=== PATIENT | female | born 1955 | race Caucasian/White ===

== ENCOUNTER → 2017-04-24 | Outpatient (CLI) | payer MEDICARE ==
[2017-04-24 10:30] LABS: Bilirubin, Delta 0.3 mg/dL (0.0-0.2); Total Bilirubin 0.5 mg/dL (0.2-1.3)
== END | disposition home or self-care (01) ==
LOC: LABWHC1 09:36
PROVIDERS: ATTEND Internal Medicine Cardiovascular Disease
DX: E78.5 Hyperlipidemia, unspecified (principal); I25.10 Atherosclerotic heart disease of native coronary artery without angina pectoris
CPT/HCPCS: 36415; 80061; 80076; 82550

== ENCOUNTER → 2019-03-14 | Outpatient (CLI) | payer MEDICARE ==
[2019-03-14 18:47] LABS: Chol/HDL Ratio 3.27; LDL Cholesterol,Calculated 75.8 mg/dL (0.0-131.0); VLDL Calculation 26.2 mg/dL (5.00-40.00)
[2019-03-14 18:55] LABS: T4, Free (Free Thyroxine) 1.6 ng/dL (0.80-1.80)
== END | disposition home or self-care (01) ==
LOC: LABWHC1 09:39
PROVIDERS: ATTEND Internal Medicine Cardiovascular Disease
DX: I25.10 Atherosclerotic heart disease of native coronary artery without angina pectoris (principal); E78.5 Hyperlipidemia, unspecified; E03.9 Hypothyroidism, unspecified; R94.6 Abnormal results of thyroid function studies
CPT/HCPCS: 36415; 80061; 84439; 84443; 84450; 84460; 84481

== ENCOUNTER → 2021-02-19 | Outpatient (CLI) | payer MEDICARE ==
[2021-02-20 15:01] LABS: Anion Gap 12.2 mmol/L (4.00-12.00); Carbon Dioxide 23.8 mmol/L (21.6-31.8); Chol/HDL Ratio 3.94; Potassium 5.3 mmol/L (3.5-5.5)
[2021-02-20 15:02] LABS: African American GFR (CKD) 61.9 (60.0-200.0); Albumin 4.3 g/dL (3.80-4.90); Albumin/Globulin Ratio 2.05 (1.60-3.17); Bilirubin, Conjugated 0.2 mg/dL (0.20-0.40); Bilirubin,Unconjugated 0.3 mg/dL; Globulin 2.1 g/dL (1.6-3.3); Non-African American GFR(CKD) 53.4 (60.0-200.0); Total Bilirubin 0.5 mg/dL (0.3-1.2); Total Protein 6.4 g/dL (6.2-8.2)
[2021-02-20 15:09] LABS: T4, Free (Free Thyroxine) 2.2 ng/dL (0.80-1.80)
== END | disposition home or self-care (01) ==
LOC: LABWHC1 10:33
PROVIDERS: ATTEND Internal Medicine
DX: I10 Essential (primary) hypertension (principal); E78.5 Hyperlipidemia, unspecified; E03.9 Hypothyroidism, unspecified
CPT/HCPCS: 36415; 80051; 80061; 80076; 82565; 82947; 84439; 84443; 84481; 84520

== ENCOUNTER → 2021-03-27 | Outpatient (CLI) | payer MEDICARE ==
[2021-03-27 21:58] LABS: Blood Urea Nitrogen 28.6 mg/dL (9.0-27.0); Non-African American GFR(CKD) 57.8 (60.0-200.0); T4, Free (Free Thyroxine) 1.46 ng/dL (0.800-1.800)
== END | disposition home or self-care (01) ==
LOC: LABWHC1 13:11
PROVIDERS: ATTEND Physician Assistant
DX: E03.9 Hypothyroidism, unspecified (principal); N28.9 Disorder of kidney and ureter, unspecified
CPT/HCPCS: 36415; 82565; 84439; 84443; 84481; 84520

== ENCOUNTER → 2022-02-04 | Outpatient (CLI) | payer MEDICARE ==
--- NOTE | 2022-02-04 15:56 | US ---
EXAMINATION TYPE: US kidneys/renal and bladder DATE OF EXAM: 02/04/2022 COMPARISON: None. CLINICAL HISTORY: N18.31 CKD Stage 3A. EXAM MEASUREMENTS: Right Kidney: 9.2 x 4.4 x 3.8 cm Left Kidney: 9.3 x 4.7 x 4.2 cm Difficult and limited study due to patient body habitus Right Kidney: 3.0 x 2.7 x 2.5cm isoechoic area mid pole . No hydronephrosis. No shadowing calculi. Left Kidney: No hydronephrosis or masses seen. No shadowing calculi. Bladder: wnl Bilateral Jets seen: right jet not seen, left jet seen IMPRESSION: Limited evaluation with isoechoic area within the mid pole the right kidney. This may represent drome clara hump versus mass. Consider further evaluation with CT renal mass protocol.
== END | disposition home or self-care (01) ==
LOC: RADUSWWP 14:47
PROVIDERS: ATTEND Internal Medicine
DX: N18.31 Chronic kidney disease, stage 3a (principal)
CPT/HCPCS: 76770

== ENCOUNTER → 2022-10-08 | Outpatient (CLI) | payer MEDICARE ==
--- NOTE | 2022-10-08 12:04 | CT ---
EXAMINATION TYPE: CT abdomen pelvis wo con DATE OF EXAM: 10/08/2022 HISTORY: abnormal labs. Right renal mass per order. Prior abnormal ultrasound. CT DLP: 1539.5 mGycm. Automated Exposure Control for Dose Reduction was Utilized. TECHNIQUE: CT scan of the abdomen and pelvis is performed without oral or IV contrast. COMPARISON: Kidney ultrasound February 04, 2022. MRI lumbar spine November 16, 2012 FINDINGS: Within the limitations of a non-contrast study, the following observations are made. LUNG BASES: Coronary artery calcification and stents in the LAD distribution and RCA distribution ar e thought present. Mild to moderate left greater than right bibasilar linear scarring and/or atelecta sis. Mild cardiomegaly. LIVER/GB: Cholecystectomy clips are seen. PANCREAS: No significant abnormality is seen. SPLEEN: Incidental anterior splenule axial image 55. ADRENALS: There is 1.7 cm low dense right adrenal mass axial image 49 with Hounsfield units averaging near 6 consistent with benign lipid rich adenoma. KIDNEYS: Lobulated contour to both kidneys. No obvious mass identified bilaterally on noncontrast CT. No renal calculi. No hydronephrosis seen bilaterally. BOWEL: Distal left and Sigmoid colonic diverticulosis. No CT evidence for acute diverticulitis. No fay spicious small or large bowel dilatation. GENITAL ORGANS: Anteverted uterus. Normal size ovaries. LYMPH NODES: No greater than 1cm abdominal or pelvic lymph nodes are appreciated. OSSEOUS STRUCTURES: Moderate axial joint space loss in both hips. OTHER: Small fat-containing umbilical hernia sagittal image 74. Displaced clip anterior upper pelvis axial image 118. IMPRESSION: Slightly suboptimal study without IV contrast. No suspicious solid or cystic mass in eith er kidney with particular attention to the mid pole level right kidney at area of concern on recent u ltrasound.
== END | disposition home or self-care (01) ==
LOC: RADCTMAIN 10:55
PROVIDERS: ATTEND Internal Medicine
DX: N28.89 Other specified disorders of kidney and ureter (principal)
CPT/HCPCS: 74176

== ENCOUNTER → 2023-03-24 | Outpatient (CLI) | payer MEDICARE | END | disposition home or self-care (01) | LOC: LABWHC1 11:29 | PROVIDERS: ATTEND Internal Medicine | DX: Z53.9 Procedure and treatment not carried out, unspecified reason (principal) ==

== ENCOUNTER 2023-04-01 05:51 | Observation (INO) | payer MEDICARE ==
[2023-03-27 14:41] VITALS: BMI 48.8
--- NOTE | 2023-03-31 18:21 | P.GSHP ---
History of Present Illness H&P Date: 03/31/23 67 yo female with jeana and a rectocele. SHe comes for a rectocele repair[ Dr Lauren] and a pubovaginal sling [ Dr Tipton ] the risks and complications have been discussed including the mesh controversy and the risks of the surgical procedure. - Constitutional Constitutional: Denies chills, Denies fever - EENT Eyes: denies blurred vision, denies pain Ears, nose, mouth and throat: Denies headache, Denies sore throat - Cardiovascular Cardiovascular: Denies chest pain, Denies shortness of breath - Respiratory Respiratory: Denies cough, Denies 7 - Gastrointestinal Gastrointestinal: Denies abdominal pain, Denies diarrhea, Denies nausea, Denies vomiting - Genitourinary (Female) Genitourinary: Denies dysuria, Denies hematuria - Genitourinary (Male) Genitourinary: Denies dysuria, Denies hematuria - Musculoskeletal Musculoskeletal: Denies myalgias - Integumentary Integumentary: Denies pruritus, Denies rash - Neurological Neurological: Denies numbness, Denies weakness - Psychiatric Psychiatric: Denies anxiety, Denies depression - Endocrine Endocrine: Denies fatigue, Denies weight change Past Medical History Past Medical History: GERD/Reflux, Hyperlipidemia, Hypertension, Myocardial Infarction ([place]), Osteoarthritis (OA), Skin Disorder, Thyroid Disorder Additional Past Medical History / Comment(s): 5 herniated discs in back. Chronic generalized pain. "Knees bone on bone". Psoriasis. Last Myocardial Infarction Date:: 2004 History of Any Multi-Drug Resistant Organisms: None Reported Past Surgical History: Cholecystectomy, Heart Catheterization With Stent, Uterine Ablation Additional Past Surgical History / Comment(s): 3 cardiac stents. Past Anesthesia/Blood Transfusion Reactions: Postoperative Nausea & Vomiting (PONV) Additional Past Anesthesia/Blood Transfusion Reaction / Comment(s): SEVERE PONV WITH ANESTHESIA. Date of Last Stent Placement:: 2004 Past Psychological History: No Psychological Hx Reported Smoking Status: Never smoker Past Alcohol Use History: Rare Past Drug Use History: None Reported - Past Family History Mother Family Medical History: Diabetes Mellitus, Thyroid Disorder Father Family Medical History: Cancer, Myocardial Infarction ([place]) Additional Family Medical History / Comment(s): LUNG CANCER -HEART PROBLEMS WITH TRIPLE BYPASS & [place]. Medications and Allergies Home Medications Medication Instructions Recorded Confirmed Type Omeprazole [PriLOSEC] 40 mg PO AC-SUPPER 10/17/15 03/27/23 History Aspirin 325 mg PO DAILY #30 tab 10/23/15 03/27/23 Rx Acetaminophen [Tylenol] 650 mg PO DIRECTED PRN 03/27/23 03/27/23 History Advil (Unknown Dose) 1 tab PO DIRECTED PRN 03/27/23 03/27/23 History Aleve (Unknown Dose) 1 tab PO DIRECTED PRN 03/27/23 03/27/23 History Diclofenac Sodium [Voltaren] 75 mg PO BID PRN 03/27/23 03/27/23 History Levothyroxine Sodium 150 mcg PO QAM 03/27/23 03/27/23 History Losartan Potassium [Cozaar] 100 mg PO HS 03/27/23 03/27/23 History Rosuvastatin [Crestor] 10 mg PO HS 03/27/23 03/27/23 History amLODIPine BESYLATE [Norvasc] 5 mg PO HS 03/27/23 03/27/23 History Allergies Allergy/AdvReac Type Severity Reaction Status Date / Time Penicillins Allergy Rash/Hives Verified 03/27/23 13:47 Surgical - Exam - General well developed, well nourished, no distress - Eyes normal ocular movement, no icteric - ENT no hearing loss, no congestion - Neck no masses, trachea midline - Respiratory normal respiratory effort, clear to auscultation - Abdomen Abdomen: soft, non tender, no guarding, no rigid, no rebound - Genitourinary hypermobile urethra , rectocele - Integumentary no rash, no abnormal pigmentation - Neurologic no disoriented, no combative - Psychiatric oriented to time, oriented to person, oriented to place, speech is normal, memory intact Assessment and Plan Assessment: Impression: jeana, rectocele Plan: Pubovaginal sling[ lynx graft]. rectocele repair.
--- NOTE | 2023-03-31 19:58 | P.HPOB ---
History of Present Illness H&P Date: 03/31/23 Chief Complaint: Rectocele This is a 67 y.o. female, 3, para 2, who presents for rectocele repair along with pubovaginal sling to be performed by Dr. Tipton for stress urinary incontinence. She complains of back pain, urinary incontinence and constipation. She has to push on vaginal area to have a bowel movement. Symptoms have been worsening over 20 years. She has been evaluated by cardiology and has been cleared for surgery. OB Hx: . History of 2 vaginal deliveries. History of 1 miscarriage. 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 Review of Systems Constitutional: Denies chills, Denies fever Eyes: denies blurred vision, denies pain Ears, nose, mouth and throat: Denies headache, Denies sore throat Cardiovascular: Denies chest pain, Denies shortness of breath Respiratory: Denies cough Gastrointestinal: Reports constipation, Reports heartburn, Denies abdominal pain, Denies diarrhea, Denies nausea, Denies vomiting Genitourinary: Reports prolapse symptoms, Reports stress incontinence Menstruation: Reports postmenopausal Musculoskeletal: Reports low back pain Integumentary: Denies pruritus, Denies rash Neurological: Denies numbness, Denies weakness Psychiatric: Denies anxiety, Denies depression Past Medical History Past Medical History: GERD/Reflux, Hyperlipidemia, Hypertension, Myocardial Infarction ([place]), Osteoarthritis ([place]), Skin Disorder, Thyroid Disorder Additional Past Medical History / Comment(s): 5 herniated discs in back. Chronic generalized pain. "Knees bone on bone". Psoriasis. Last Myocardial Infarction Date:: 2004 History of Any Multi-Drug Resistant Organisms: None Reported Past Surgical History: Cholecystectomy, Heart Catheterization With Stent, Uterine Ablation Additional Past Surgical History / Comment(s): 3 cardiac stents. Past Anesthesia/Blood Transfusion Reactions: Postoperative Nausea & Vomiting (PONV) Additional Past Anesthesia/Blood Transfusion Reaction / Comment(s): SEVERE PONV WITH ANESTHESIA. Date of Last Stent Placement:: 2004 Past Psychological History: No Psychological Hx Reported Smoking Status: Never smoker Past Alcohol Use History: Rare Past Drug Use History: None Reported - Past Family History Mother Family Medical History: Diabetes Mellitus, Thyroid Disorder Father Family Medical History: Cancer, Myocardial Infarction ([place]) Additional Family Medical History / Comment(s): LUNG CANCER -HEART PROBLEMS WITH TRIPLE BYPASS & [place]. Medications and Allergies Home Medications Medication Instructions Recorded Confirmed Type Omeprazole [PriLOSEC] 40 mg PO AC-SUPPER 10/17/15 04/01/23 History Aspirin 325 mg PO DAILY #30 tab 10/23/15 04/01/23 Rx Acetaminophen [Tylenol] 650 mg PO DIRECTED PRN 03/27/23 04/01/23 History Advil (Unknown Dose) 1 tab PO DIRECTED PRN 03/27/23 04/01/23 History Aleve (Unknown Dose) 1 tab PO DIRECTED PRN 03/27/23 04/01/23 History Diclofenac Sodium [Voltaren] 75 mg PO BID PRN 03/27/23 04/01/23 History Levothyroxine Sodium 150 mcg PO QAM 03/27/23 04/01/23 History Losartan Potassium [Cozaar] 100 mg PO HS 03/27/23 04/01/23 History Rosuvastatin [Crestor] 10 mg PO HS 03/27/23 04/01/23 History amLODIPine BESYLATE [Norvasc] 5 mg PO HS 03/27/23 04/01/23 History Allergies Allergy/AdvReac Type Severity Reaction Status Date / Time Penicillins Allergy Rash/Hives Verified 04/01/23 06:20 Exam Osteopathic Statement: *. No significant issues noted on an osteopathic structural exam other than those noted in the History and Physical/Consult. HEENT: within normal limits Heart: regular rate and rhythm Lungs: clear to auscultation bilaterally Abdomen: soft, non-tender Pelvic: uterus small anteverted, non-tender, non prolapsed, grade 2 rectocele, no cystocele Extremities: neg. Shakira's Assessment and Plan (1) Rectocele Current Visit: No Status: Acute Code(s): N81.6 - RECTOCELE SNOMED Code(s): 2855728 (2) ERICA (stress urinary incontinence, female) Current Visit: No Status: Acute Code(s): N39.3 - STRESS INCONTINENCE (FEMALE) (MALE) SNOMED Code(s): 40937307 Plan: Proceed with posterior vaginal colporrhaphy. Dr. Tipton to perform pubvaginal sling. I have discussed the risks, benefits, and alternative therapies for the above- mentioned procedure and for both sedation/anesthesia as well as necessary blood products administration, if indicated, as they pertain to this patient. The patient has indicated her understanding and acceptance of the risks and procedures discussed.
[~2023-04-01 05:51] MED LIST: DEXAMETHASONE SOD PHOSPHATE 4 MG/ML 1 ML VIAL IV ONE; GENTAMICIN 420 MG in SODIUM CHLORIDE 0.9% 100 ML IVPB PRN; LIDOCAINE 1% (10MG/ML) FOR IV START INTRADERMA PRN; ONDANSETRON 4 MG/2 ML VIAL IVP ONE; Pre Op ABX Message 1 EACH MISC MISCELLANE ONE
[2023-04-01] MEDS: LACTATED RINGERS 1,000 ML IV SCH ×4 (06:40→23:14)
[2023-04-01] MEDS ORDERED: ONDANSETRON 4 MG/2 ML VIAL ONE (06:45)
[2023-04-01] MEDS ORDERED: DEXAMETHASONE SOD PHOSPHATE 4 MG/ML 1 ML VIAL IVP ONE (06:59)
[2023-04-01] MEDS ORDERED: ONDANSETRON 4 MG/2 ML VIAL IVP ONE (06:59)
[2023-04-01] MEDS ORDERED: HYDROmorphone 0.5 MG/0.5 ML SYRINGE IVP PRN (07:00)
[2023-04-01] MEDS ORDERED: MIDAZOLAM 2 MG/2 ML VIAL IV PRN (07:00)
[2023-04-01] MEDS ORDERED: MIDAZOLAM 2 MG/2 ML VIAL IVP ONE (07:01)
[2023-04-01] MEDS ORDERED: LIDOCAINE 1% INJ 10MG/ML (20 ML MDV) ONE (07:25)
[2023-04-01] MEDS ORDERED: WATER FOR INJECTION, STERILE 10 ML VIAL IV ONE (07:25)
[2023-04-01] MEDS ORDERED: SUCCINYLCHOLINE CHLORIDE 200 MG/10 ML VIAL IV ONE (07:25)
[2023-04-01] MEDS ORDERED: KETAMINE HCL IN 0.9 % NACL 50 MG/5 ML SYRINGE ONE (07:25)
[2023-04-01] MEDS ORDERED: PROPOFOL 10 MG/ML 20 ML VIAL IV ONE (07:25)
[2023-04-01] MEDS ORDERED: fentaNYL (PF) 50 MCG/ML 2 ML AMP ONE (07:25)
[2023-04-01] MEDS ORDERED: MORPHINE SULFATE (PF) 0.3 MG/0.3 ML SYR ONE (07:25)
[2023-04-01] MEDS ORDERED: MIDAZOLAM 2 MG/2 ML VIAL ONE (07:25)
[2023-04-01] MEDS ORDERED: GLYCOPYRROLATE 0.2 MG/ML 2 ML VIAL ONE (07:25)
[2023-04-01] MEDS ORDERED: PHENYLEPHRINE-0.9% NACL SYG 1,000 MCG/10 ML SYRINGE ONE (07:25)
[2023-04-01] MEDS ORDERED: ePHEDrine 50 MG/ML 1 ML VIAL ONE (07:25)
[2023-04-01] MEDS ORDERED: BACITRACIN OINT 1 EACH PACKET TOPICAL ONE (08:12)
[2023-04-01] MEDS ORDERED: EPINEPHrine 1 MG in SODIUM CHLORIDE 0.9% 150 ML IV ONE (08:14)
[2023-04-01] MEDS ORDERED: GENTAMICIN 40 MG/ML 2 ML VIAL IRRIGATION ONE (08:16)
--- NOTE | 2023-04-01 08:46 | P.OP ---
Date of Procedure: 04/01/23 Preoperative Diagnosis: Stress urinary incontinence, rectocele Postoperative Diagnosis: Same Procedure(s) Performed: Rectocele repair (Dr. Lauren), attempted pubovaginal sling (aborted), cystoscopy Anesthesia: JONOA Surgeon: David Tipton Estimated Blood Loss (ml): 50 Pathology: none sent Disposition: PACU Indications for Procedure: The patient has a rectocele and stress urinary incontinence. She comes for a pubovaginal sling and a rectocele repair Description of Procedure: Patient brought operating suite has been given a general anesthetic. Dr. Lauren does her rectocele repair. I entered the procedure and elevate the anterior vaginal mucosa off the submucosa with 1% lidocaine with epinephrine. A midline suburethral incision is made. I dissect lateral the bladder neck bilaterally. The pelvis was quite tight. A counter incisions in the corners of the pubis. I passed the left introducer into the perivaginal space making sure not to injure the urethra. I then pass a right to do so in the perivaginal space. I do cystoscopy. The urethra has been intubated with the introducer on the right. I attempted twice more to pass introducer begin into the urethra. With attempt I'm outside the urethra but I elected to abort the procedure as I do not want her to get infected graft or urethrovaginal fistula. The catheters placed the patient's awake and returned recovery room good condition. She'll be placed in the hospital postoperatively. The catheter remain in place for several days and then remove the office.
--- NOTE | 2023-04-01 08:50 | P.ANPRN ---
Procedure Note - Anesthesia - Epidural/Spinal Spinal Time Out Performed: Yes Date of Procedure: 04/01/23 Procedure Start Time: 07:00 Procedure Stop Time: 07:07 Location of Patient: PreOp Indication: Acute Post-Operative Pain Sedation Type: Sedate with meaningful contact maintained Preparation: Sterile Dressing Position: Sitting Catheter: None Needle Guage: 25 Injectate: 25 g of preservative free fentanyl mixed with 300 g of PF morphine Narrative: L4-L5 interspinous space with one attempt Blood Aspirated: No Pain Paresthesia on Injection Noted: No Events: Uneventful and Well Tolerated
--- NOTE | 2023-04-01 08:53 | P.OP ---
Date of Procedure: 04/01/23 Preoperative Diagnosis: Rectocele Postoperative Diagnosis: Same Procedure(s) Performed: Posterior vaginal colporrhaphy Anesthesia: [facility] Surgeon: Jasmyne Lauren Program Director #1: David Tipton Estimated Blood Loss (ml): 50 Pathology: other (Vaginal mucosa) Disposition: floor Indications for Procedure: This is a 67 y.o. female, 3, para 2, who presents for rectocele repair along with pubovaginal sling to be performed by Dr. Tipton for stress urinary incontinence. She complains of back pain, urinary incontinence and constipation. She has to push on vaginal area to have a bowel movement. Symptoms have been worsening over 20 years. She has been evaluated by cardiology and has been cleared for surgery. Operative Findings: grade 2-3 rectocele is noted and grade 1 cystocele is noted. Description of Procedure: the patient is taken to the operating room and she is placed in the dorsal lithotomy position. She is prepped and draped in the normal sterile fashion. The 4 and 8:00 positions on the introitus or grasped with 2 Allis clamps. Next the vaginal mucosa was injected with a 1 amp of epinephrine to 150 mL of normal saline underneath the vaginal mucosa upwards towards the posterior cul-de-sac. Next a small triangular piece of tissue is removed between the 2 Allis clamps with the scalpel and then Metzenbaum scissors are used to dissect underneath the vaginal mucosa upwards towards the posterior cul-de-sac. The edges of the vaginal mucosa are held with Allis clamps. The vaginal mucosa was dissected away from the rectocele with sharp dissection. Next the rectocele is freed and the rectocele is reduced with 0 Vicryl suture in interrupted [id number] stitches. The vaginal mucosa is then trimmed and then sutured with 0 Vicryl suture in a running locked fashion up to the introitus and then brought u nderneath the skin in a subcuticular fashion back up to the introitus and tied. Good hemostasis is noted. Dr. Navarro performed his portion of the surgery which will be dictated separately. At the end of this procedure one-inch iodoform gauze was used with bacitracin ointment to pack the vagina. Good hemostasis is noted.
[2023-04-01] MEDS ORDERED: ETODOLAC 400 MG TAB PO PRN (09:58)
[2023-04-01] MEDS ORDERED: SIMETHICONE 80 MG CHEWABLE PO PRN (09:58)
[2023-04-01] MEDS ORDERED: ONDANSETRON 4 MG/2 ML VIAL IVP PRN (09:58)
[2023-04-01] MEDS ORDERED: diphenhydrAMINE 50 MG/ML 1 ML VIAL IVP PRN (09:58)
[2023-04-01] MEDS ORDERED: METOCLOPRAMIDE 5 MG/ML 2 ML VIAL IVP PRN (09:58)
[2023-04-01] MEDS ORDERED: KETOROLAC 15 MG/ML 1 ML VIAL IVP PRN (09:58)
[2023-04-01] MEDS: LEVOTHYROXINE 50 MCG TAB PO SCH (14:23)
[2023-04-01] MEDS: SENNOSIDES-DOCUSATE SODIUM 1 EACH TAB PO SCH ×2 (14:24→19:58)
[2023-04-01] MEDS: ASPIRIN 325 MG TAB PO SCH (14:24)
--- NOTE | 2023-04-01 18:08 | XR ---
EXAMINATION TYPE: XR chest 2V DATE OF EXAM: 04/01/2023 COMPARISON: Chest x-ray December 24, 2015 HISTORY: Shortness of breath TECHNIQUE: Frontal and lateral views of the chest are obtained. FINDINGS: There is mild cardiomegaly with central vascular congestion on current study. Low lung vol umes are present. No pleural effusion or pneumothorax seen bilaterally. The osseous structures are i ntact. IMPRESSION: Mild cardiomegaly with central vascular congestion. Correlate for possible CHF exacerbat ion.
[2023-04-01] MEDS ORDERED: FUROSEMIDE 10 MG/ML 2 ML VIAL IV ONE (19:00)
[2023-04-01] MEDS: PANTOPRAZOLE 40 MG TABLET PO SCH (19:00)
[2023-04-01] MEDS: LOSARTAN 50 MG TAB PO SCH (20:00)
[2023-04-01] MEDS: ATORVASTATIN 20 MG TAB PO SCH (20:00)
[2023-04-01] MEDS: amLODIPine 5 MG TAB PO SCH (20:00)
[2023-04-02] MEDS: ZOLPIDEM 5 MG TAB PO PRN ×2 (02:04→21:17)
[2023-04-02 04:32] LABS: Basophils % (A) 0 %; Eosinophils # (A) 0.1 k/uL (0-0.7); Eosinophils % (A) 0 %; HCT 39.5 % (34.0-46.0); HGB 12.8 gm/dL (11.4-16.0); Lymphocytes # (A) 1.3 k/uL (1.0-4.8); Lymphocytes % (A) 8 %; MCH 31.2 pg (25.0-35.0); MCHC 32.5 g/dL (31.0-37.0); MCV 95.9 fL (80.0-100.0); Mean Platelet Volume 8.3; Monocytes # (A) 1.1 k/uL (0-1.0); Monocytes % (A) 6 %; Neutrophils # (A) 14.2 k/uL (1.3-7.7); Neutrophils % (A) 85 %; Platelet Count 208 k/uL (150-450); RBC 4.12 m/uL (3.80-5.40); RDW 13.3 % (11.5-15.5); WBC 16.7 k/uL (3.8-10.6)
[2023-04-02] MEDS: LEVOTHYROXINE 50 MCG TAB PO SCH (05:31)
--- NOTE | 2023-04-02 06:12 | P.PN ---
Progress Note - Text Progress Note Date: 04/02/23 The patient underwent a posterior repair by Dr Lauren and a failed pubovagianl sling by me yesterday. Due to technical reasons I was unable to achieve the sling and it was aborted. I will leave the catheter in until next week and then remove it. A second approach to her jeana can be attempted but I recommend waiting for at least 6 weeks. This has been discussed with the patient. She can be d/cd home from my standpoint with the catheter and fu in the office next week for catheter removal.
--- NOTE | 2023-04-02 07:04 | P.PN ---
Progress Note - Text Progress Note Date: 04/02/23 Ms. Vargas is a 67 -year-old female had a history of Posterior vaginal colporrhaphy under General anesthesia , and spinal analgesia with Astramorph 300 g, and fentanyl 25 mcg for postop pain. Today patient is comfortable sitting in her bed. Today patient rated her pain level 1-2 out of 10 in s everity. Denied any fever, drowsiness, confusion. Denied any weakness, tingling sensation in her lower extremities. Denied any bowel or bladder problems. Moving all extremities without any difficulty. Able to walk without any difficulties. She still using nasal cannula oxygen 4 L. She had history of vomiting a few times yesterday. Denied any nausea or vomiting today. Her itching gradually subsiding. Vitals: Hemodynamically stable Continue oral pain medication as per primary team.
[2023-04-02] MEDS ORDERED: ACETAMINOPHEN TAB 325 MG TAB PO PRN (07:36)
--- NOTE | 2023-04-02 09:18 | P.DS ---
Providers Date of admission: 04/01/2023 Expected date of discharge: 04/02/23 Attending physician: Jasmyne Lauren Primary care physician: Sim Pyle - Discharge Diagnosis(es) (1) Rectocele Current Visit: No Status: Acute (2) ERICA (stress urinary incontinence, female) Current Visit: No Status: Acute Hospital Course: This is a 67-year-old female who underwent a rectocele repair and failed urethral sling on 04/01/2023. Through the night she did have some issues with desaturation and was started on oxygen and given 1 dose of Lasix. She is feeling better today but does feel like she has to cough when she takes a deep breath in. She has been seen by Dr. Tipton this morning and he has indicated that she may be discharged when she is stable. She has not ambulated yet. Packing was removed this morning. Her catheter is going to stay in for approximately 1 week. Vital signs are stable other than her O2 saturation was lower off of oxygen. She is currently on 3 L of oxygen. Abdomen shows positive bowel sounds 4. Her perineum shows some dried blood on the inner thighs. No pad is on her currently. No active bleeding is noted. Extremities show negative Homans. Impression is status post posterior vaginal colporrhaphy postoperative day #1, failed urethral sling. Plan is to wean off of oxygen today and once she has weaned off of oxygen she may be old to go home. She is advised no heavy lifting or straining. She may take ibuprofen or Tylenol as needed for pain. She is advised to follow up in the office in 1 week for a postoperative check. If she is unable to wean off of oxygen today, I will consult heart etiology or medicine to manage her cardiac and respiratory issues. Procedures: Posterior vaginal colporrhaphy on 04/01/2023, failed urethral sling Patient Condition at Discharge: Fair Plan - Discharge Summary Discharge Rx Participant: No New Discharge Prescriptions: No Action Omeprazole [PriLOSEC] 40 mg PO AC-SUPPER Aspirin 325 mg PO DAILY #30 tab amLODIPine BESYLATE [Norvasc] 5 mg PO HS Rosuvastatin [Crestor] 10 mg PO HS Losartan Potassium [Cozaar] 100 mg PO HS Levothyroxine Sodium 150 mcg PO QAM Diclofenac Sodium [Voltaren] 75 mg PO BID PRN PRN Reason: Pain Acetaminophen [Tylenol] 650 mg PO DIRECTED PRN PRN Reason: Pain Aleve (Unknown Dose) 1 tab PO DIRECTED PRN PRN Reason: Pain Advil (Unknown Dose) 1 tab PO DIRECTED PRN PRN Reason: Pain Discharge Medication List Omeprazole [PriLOSEC] 40 mg PO AC-SUPPER 10/17/15 [History] Aspirin 325 mg PO DAILY #30 tab 10/23/15 [Rx] Acetaminophen [Tylenol] 650 mg PO DIRECTED PRN 03/27/23 [History] Advil (Unknown Dose) 1 tab PO DIRECTED PRN 03/27/23 [History] Aleve (Unknown Dose) 1 tab PO DIRECTED PRN 03/27/23 [History] Diclofenac Sodium [Voltaren] 75 mg PO BID PRN 03/27/23 [History] Levothyroxine Sodium 150 mcg PO QAM 03/27/23 [History] Losartan Potassium [Cozaar] 100 mg PO HS 03/27/23 [History] Rosuvastatin [Crestor] 10 mg PO HS 03/27/23 [History] amLODIPine BESYLATE [Norvasc] 5 mg PO HS 03/27/23 [History] Follow up Appointment(s)/Referral(s): David Tipton MD [STAFF PHYSICIAN] - 1 Week Jasmyne Lauren DO [Doctor of Osteopathic Medicine] - 1 Week Activity/Diet/Wound Care/Special Instructions: Activity as tolerated. Diet as tolerated. May shower, but no tub baths for at least 1 week. Encouraged ambulation. No intercourse. Continue stool softeners until regular bowel movements. Discharge Disposition: HOME SELF-CARE
[2023-04-02] MEDS: SENNOSIDES-DOCUSATE SODIUM 1 EACH TAB PO SCH ×2 (10:07→20:40)
[2023-04-02] MEDS: PANTOPRAZOLE 40 MG TABLET PO SCH ×2 (10:07→18:40)
[2023-04-02] MEDS: ASPIRIN 325 MG TAB PO SCH (10:07)
[2023-04-02] MEDS ORDERED: ALBUTEROL NEBULIZED 2.5 MG/3 ML INHALATION PRN (18:27)
--- NOTE | 2023-04-02 18:36 | XR ---
EXAMINATION TYPE: XR chest 2V DATE OF EXAM: 04/02/2023 6:23 PM CLINICAL INDICATION:Female, 67 years old with history of low oxygen saturation; [facility] COMPARISON: Chest radiographs from 04/01/2023 TECHNIQUE: XR chest 2V Frontal and lateral views of the chest. FINDINGS: Lungs/Pleura: There is flattening of the diaphragm with increased lucency of the lungs. No evidence o f pneumothorax, pleural effusion or focal consolidation. Pulmonary vascularity: Unremarkable. Heart/mediastinum: Cardiomediastinal silhouette is enlarged and stable. Musculoskeletal: No acute osseous pathology. IMPRESSION: Low lung volumes with a generalized hazy appearance which could represent atelectasis versus pulmonar y edema correlate with serum BNP.
[2023-04-02] MEDS: IBUPROFEN 600 MG TAB PO PRN (18:38)
[2023-04-02 18:41] LABS: Basophils % (A) 0 %; Eosinophils # (A) 0.2 k/uL (0-0.7); Eosinophils % (A) 2 %; HCT 40.8 % (34.0-46.0); HGB 13.4 gm/dL (11.4-16.0); Lymphocytes # (A) 1.9 k/uL (1.0-4.8); Lymphocytes % (A) 14 %; MCH 31.7 pg (25.0-35.0); MCHC 32.8 g/dL (31.0-37.0); MCV 96.7 fL (80.0-100.0); Mean Platelet Volume 7.9; Monocytes # (A) 0.8 k/uL (0-1.0); Monocytes % (A) 6 %; Neutrophils % (A) 77 %; Platelet Count 191 k/uL (150-450); RBC 4.22 m/uL (3.80-5.40); RDW 13.2 % (11.5-15.5)
[2023-04-02 18:52] LABS: ALT 20 U/L (4-34); African American GFR (CKD) 41 (>60 ml/min/1.73 sqM); Albumin 3.9 g/dL (3.5-5.0); Albumin/Globulin Ratio 1.4; Anion Gap 12 mmol/L; Blood Urea Nitrogen 45 mg/dL (7-17); Calcium 9.1 mg/dL (8.4-10.2); Carbon Dioxide 23 mmol/L (22-30); Chloride 104 mmol/L (98-107); Globulin 2.8 g/dL; Glucose 73 mg/dL (74-99); Non-African American GFR(CKD) 35 (>60 ml/min/1.73 sqM); Sodium 139 mmol/L (137-145); Total Bilirubin 0.6 mg/dL (0.2-1.3); Total Protein 6.7 g/dL (6.3-8.2)
[2023-04-02 19:06] LABS: AST 31 U/L (14-36); Alkaline Phosphatase 85 U/L (38-126)
[2023-04-02] MEDS: amLODIPine 5 MG TAB PO SCH (20:39)
[2023-04-02] MEDS: LOSARTAN 50 MG TAB PO SCH (20:40)
[2023-04-02] MEDS: ATORVASTATIN 20 MG TAB PO SCH (20:40)
[2023-04-02] MEDS: LACTATED RINGERS 1,000 ML IV SCH (21:18)
[2023-04-03] MEDS: LEVOTHYROXINE 50 MCG TAB PO SCH (06:33)
[2023-04-03] MEDS ORDERED: ASPIRIN-ACET-CAFF 250-250-65MG 1 EACH TAB PO PRN (08:20)
--- NOTE | 2023-04-03 08:28 | P.PN ---
Progress Note - Text Progress Note Date: 04/03/23 Patient was unable to wean off of oxygen yesterday. She is currently off of oxygen and sitting up in a chair and denies any trouble breathing at this time. She does complain of a headache that she usually takes Excedrin for at home. She is anxious to go home. Will change discharge to today 04/03/2023 as long as her pulse ox is okay off of oxygen and she is cleared by Dr. Pyle, her primary care. She denies any heavy bleeding. She is passing flatus but no bowel movement yet. Vital signs are otherwise within normal limits. Of note her BUN and creatinine are elevated on labs last night. I will repeat these this morning for medicine.
[2023-04-03 09:02] LABS: African American GFR (CKD) 57 (>60 ml/min/1.73 sqM); Anion Gap 10 mmol/L; Blood Urea Nitrogen 35 mg/dL (7-17); Calcium 9.2 mg/dL (8.4-10.2); Carbon Dioxide 25 mmol/L (22-30); Chloride 105 mmol/L (98-107); Glucose 130 mg/dL (74-99); Non-African American GFR(CKD) 49 (>60 ml/min/1.73 sqM); Potassium 4.7 mmol/L (3.5-5.1); Sodium 140 mmol/L (137-145)
[2023-04-03] MEDS: ASPIRIN 325 MG TAB PO SCH (09:02)
[2023-04-03] MEDS: SENNOSIDES-DOCUSATE SODIUM 1 EACH TAB PO SCH (09:02)
[2023-04-03] MEDS: IBUPROFEN 600 MG TAB PO PRN (11:39)
[2023-04-03 14:41] VITALS: BP 119/76; PULSE 66; RESP 18; TEMP 98
--- NOTE | 2023-04-04 09:16 | P.CONS ---
History of Present Illness - Reason for Consult Consult date: 04/02/23 Medical management Requesting physician: Jasmyne Lauren - Chief Complaint Shortness of breath - History of Present Illness HISTORY OF PRESENT ILLNESS: This is a 67-year-old female one of my patient with a previous medical history significant for hypertension and hypertensive cardio vascular disease, hyperlipidemia, hypothyroidism, GERD with esophagitis, coronary artery disease status post PCI of the RCA back in 2016 followed by a PCI of the RCA/PDA in 2019, obesity with obstructive sleep apnea and obesity hypoventilation syndrome not using his CPAP machine, history of spondylosis of the lumbar spine as well as osteoarthritis, patient underwent surgical intervention that was done by Dr. Tipton and with rectocele repair and pubovaginal sling, patient was supposed be discharged home today however she was found to have low oxygen saturation so I was asked to see the patient for hypoxemia oxygenation was around 88% on room air, patient did not have any acute respiratory distress at that time, patient was found to have a bit of fluid overload, she was given a dose of Lasix 20 mg IV push postoperatively, I the time I saw the patient she was doing fine, chest x-ray showed evidence of atelectasis, she was started on albuterol 2.5 mg nebulization 4 times every day she was placed on oxygen 2 L nasal cannula patient was advised to stay in the hospital overnight for evaluation, her laboratory evaluation that showed evidence of minimal acute kidn ey injury, she was instructed to use incentive spirometer, and patient can be discharged home hopefully the next 24 hours, her d-dimer is slightly elevated due to her recent surgical intervention, EKG did not show evidence of acute abnormalities, troponin is negative., REVIEW OF SYSTEMS: Constitutional: No documented fever, no chills, no night sweats. No weight change. No weakness, fatigue or lethargy. No daytime sleepiness. HEENT: No headache. No blurred vision or double vision, no loss of vision. No loss of Hearing, no ringing in the ears, no dizziness. No nasal drainage or congestion. No epistaxis. No sore throat. Lungs: No shortness of breath, no cough, no sputum production. No wheezing. Reports dyspnea with activity. Cardiovascular: No chest pain, no lower extremity edema. No palpitations. No paroxysmal nocturnal dyspnea. No orthopnea. No lightheadedness or dizziness. No syncopal episodes. Abdominal: Reports abdominal pain. No nausea, vomiting. No diarrhea. No constipation. No bloody or tarry stools reports loss of appetite. Genitourinary: No dysuria, increased frequency, urgency. No urinary retention. Musculoskeletal: No myalgias. No muscle weakness, no gait dysfunction, no frequent falls. No back pain. No neck pain. Integumentary: No wounds, no lesions. No rash or pruritus. No unusual bruising. No change in hair or nails. Neurologic: No aphasia. No facial droop. No change in mentation. No head injury. No headache. No paralysis. No paresthesia. Psychiatric: No depression. No anxiety. No mood swings. Endocrine: No abnormal blood sugars. No weight change. PAST MEDICAL HISTORY: Hypertension and hypertensive cardiovascular disease. Hyperlipidemia. Hypothyroidism. GERD with esophagitis. Coronary artery disease status post PCI of the RCA 2015 and PDA 2018 Obesity with obstructive sleep apnea and obesity hypoventilation syndrome. spondylosis of the lumbar spine. Osteoarthritis. PAST SURGICAL HISTORY: Cholecystectomy. Colonoscopy 2015. Left heart catheterization with PCI of the RCA in 2015 Left heart catheterization with PCI of the RCA/PDA in 2018 Rectocele repair with pubovaginal sling SOCIAL HISTORY: Patient is a lifelong nonsmoker, she denies any drug use or abuse, she drinks occasionally, she lives with her . FAMILY HISTORY: Father at age of 71 from lung cancer and also had history of CAD, mother d ied at age of 77 from complications of diabetes mellitus type 2. Patient has 3 brothers one with paralysis due to a wheelchair accident and 2 with diabetes mellitus type 2, patient has one son and one daughter no major medical problem is. PHYSICAL EXAMINATION: General: 67-year-old female laying down in bed in no particular distress HEENT: Head is atraumatic, normocephalic, pupils were equal round reactive to light and recommendation, extraocular muscle movement were intact, sclera nonicteric, conjunctivae were pale, mucous membranes of the mouth are somewhat dry. Neck: Supple, no JVP, normal carotid upstroke bilaterally, no lymphadenopathy. Chest: Decreased breath sounds at the bases, few rhonchi, no expiratory wheezes, no chest wall tenderness, no intercostal retractions. Heart: First heart sound is normal, second heart sound is normal there is ANGELINA 2/6 located at the left sternal border Abdomen: Soft, nontender, nondistended, positive bowel sounds. Extremities: There is +2 edema no calf tenderness DP +2 bilaterally. Neurologic examination: Patient is awake alert and oriented X3, cranial nerves II-12 appear grossly intact, muscle power were 5 out of 5 in upper extremities and 5 out of 5 in bilateral lower extremities, deep tendon reflexes normal bilaterally. ASSESSMENT AND PLAN: 1. Acute hypoxemic respiratory insufficiency due to atelectasis and minimal fluid overload. She did receive a dose of Lasix 20 mg IV push 1, patient was instructed to use the incentive spirometer, continue oxygen 2 L dissecans her overnight, chest x-ray was reviewed showed evidence of minimal pulmonary vascular congestion as well as bilateral lower lobe atelectasis, start the pa tient on albuterol 2.5 mg nebulization 4 times every day,laboratory evaluation were ordered including CBC CMP d-dimer and troponin there were all reviewed. 2. Acute kidney injury. Monitor the patient CMP over the next 24 hours. Avoid NSAIDs. 3. Hypertension and hypertensive cardiovascular disease. Continue patient on losartan 100 mg every day as well as amlodipine 5 mg once every day, monitor the patient blood pressure very closely. 4. Mixed hyperlipidemia. Continue patient on atorvastatin 40 mg once every day, monitor lipid panel, keep LDL 55-70 5. Coronary artery disease status post PCI of the RCA/PDA. Continue patient on aspirin 81 mg once every day, atorvastatin 40 mg once every day, follow-up with cardiology. 6. Hypothyroidism. Continue Synthroid 150 g orally once every day. 7. GERD with esophagitis. Continue Protonix 40 mg orally once every day. 8. Obesity with obstructive sleep apnea and obesity hypoventilation syndrome patient will need to have a CPAP as an outpatient. 9. DVT prophylaxis. Continue heparin 5000 units subcutaneously every 8 hours 10. GI prophylaxis. Continue PPI. 11. Thank you for the consult. Past Medical History Past Medical History: GERD/Reflux, Hyperlipidemia, Hypertension, Myocardial Infarction ([place]), Osteoarthritis (OA), Skin Disorder, Thyroid Disorder Additional Past Medical History / Comment(s): 5 herniated discs in back. Chronic generalized pain. "Knees bone on bone". Psoriasis. Last Myocardial Infarction Date:: 2004 History of Any Multi-Drug Resistant Organisms: None Reported Past Surgical History: Cholecystectomy, Heart Catheterization With Stent, Uterine Ablation Additional Past Surgical History / Comment(s): 3 cardiac stents. Past Anesthesia/Blood Transfusion Reactions: Postoperative Nausea & Vomiting (PONV) Additional Past Anesthesia/Blood Transfusion Reaction / Comm: SEVERE PONV WITH A NESTHESIA. Date of Last Stent Placement:: 2004 Past Psychological History: No Psychological Hx Reported Smoking Status: Never smoker Past Alcohol Use History: Rare Past Drug Use History: None Reported - Past Family History Mother Family Medical History: Diabetes Mellitus, Thyroid Disorder Father Family Medical History: Cancer, Myocardial Infarction ([place]) Additional Family Medical History / Comment(s): LUNG CANCER -HEART PROBLEMS WITH TRIPLE BYPASS & [place]. Medications and Allergies Home Medications Medication Instructions Recorded Confirmed Type Omeprazole [PriLOSEC] 40 mg PO AC-SUPPER 10/17/15 04/01/23 History Aspirin 325 mg PO DAILY #30 tab 10/23/15 04/01/23 Rx Acetaminophen [Tylenol] 650 mg PO DIRECTED PRN 03/27/23 04/01/23 History Advil (Unknown Dose) 1 tab PO DIRECTED PRN 03/27/23 04/01/23 History Aleve (Unknown Dose) 1 tab PO DIRECTED PRN 03/27/23 04/01/23 History Diclofenac Sodium [Voltaren] 75 mg PO BID PRN 03/27/23 04/01/23 History Levothyroxine Sodium 150 mcg PO QAM 03/27/23 04/01/23 History Losartan Potassium [Cozaar] 100 mg PO HS 03/27/23 04/01/23 History Rosuvastatin [Crestor] 10 mg PO HS 03/27/23 04/01/23 History amLODIPine BESYLATE [Norvasc] 5 mg PO HS 03/27/23 04/01/23 History Allergies Allergy/AdvReac Type Severity Reaction Status Date / Time Penicillins Allergy Rash/Hives Verified 04/01/23 06:20 Physical Exam Vitals: Vital Signs Temp Pulse Resp BP BP Pulse Ox 04/02/23 17:00 95 04/02/23 15:31 90 L 04/02/23 15:30 98.7 F 64 14 121/69 91 L 04/02/23 13:02 18 87 L 04/02/23 11:28 59 L 18 86 L 04/02/23 09:23 92 L 04/02/23 09:03 97.8 F 56 L 18 107/68 91 L 04/02/23 01:56 98.1 F 61 16 134/83 93 L 04/02/23 01:02 94 L 04/02/23 01:00 90 L 04/02/23 00:00 94 L 04/01/23 23:24 97.6 F 58 L 15 127/84 95 04/01/23 22:39 92 L 04/01/23 20:36 98.4 F 60 19 139/84 92 L Intake and Output 04/02/23 04/02/23 04/02/23 06:59 14:59 22:59 Intake Total 50 240 Output Total 800 0 650 Balance -800 50 -410 Intake: Oral 50 240 Output: Urine 800 0 650 Other: Voiding Method Indwelling Catheter Indwelling Catheter Results CBC & Chem 7: 04/02/23 18:14 04/03/23 08:37 Labs: Abnormal Lab Results - Last 24 Hours (Table) 04/02/23 04/02/23 04/02/23 Range/Units 04:02 18:14 18:14 WBC 16.7 H 13.0 H (3.8-10.6) k/uL Neutrophils # 14.2 H 10.0 H (1.3-7.7) k/uL Monocytes # 1.1 H (0-1.0) k/uL D-Dimer (<0.60) mg/L FEU BUN 45 H (7-17) mg/dL Creatinine 1.54 H (0.52-1.04) mg/dL Glucose 73 L (74-99) mg/dL 04/02/23 Range/Units 18:14 WBC (3.8-10.6) k/uL Neutrophils # (1.3-7.7) k/uL Monocytes # (0-1.0) k/uL D-Dimer 0.87 H (<0.60) mg/L FEU BUN (7-17) mg/dL Creatinine (0.52-1.04) mg/dL Glucose (74-99) mg/dL
== END 2023-04-03 17:02 | disposition home or self-care (01) ==
LOC: OR 05:51 → 4FBP 08:43 → 6NMEDSUR 04-02 01:45 → OR 04-02 16:44
PROVIDERS: ADMIT Obstetrics & Gynecology; ATTEND Obstetrics & Gynecology
DX: N81.6 Rectocele (principal); N39.3 Stress incontinence (female) (male); J95.89 Other postprocedural complications and disorders of respiratory system, not elsewhere classified; J98.11 Atelectasis; N17.9 Acute kidney failure, unspecified; R09.02 Hypoxemia; E66.2 Morbid (severe) obesity with alveolar hypoventilation; Z68.43 Body mass index [BMI] 50.0-59.9, adult; E87.70 Fluid overload, unspecified; I11.9 Hypertensive heart disease without heart failure; E03.9 Hypothyroidism, unspecified; K21.9 Gastro-esophageal reflux disease without esophagitis; K21.00 Gastro-esophageal reflux disease with esophagitis, without bleeding; E78.2 Mixed hyperlipidemia; R51.9 Headache, unspecified; R79.89 Other specified abnormal findings of blood chemistry; M47.816 Spondylosis without myelopathy or radiculopathy, lumbar region; G89.29 Other chronic pain; L40.9 Psoriasis, unspecified; I25.2 Old myocardial infarction; K59.00 Constipation, unspecified; M19.90 Unspecified osteoarthritis, unspecified site; Z79.82 Long term (current) use of aspirin; Z88.0 Allergy status to penicillin; Z90.49 Acquired absence of other specified parts of digestive tract; Z95.5 Presence of coronary angioplasty implant and graft; Z79.899 Other long term (current) drug therapy; Z98.890 Other specified postprocedural states; Z83.3 Family history of diabetes mellitus; Z82.49 Family history of ischemic heart disease and other diseases of the circulatory system; Z83.49 Family history of other endocrine, nutritional and metabolic diseases; Z80.1 Family history of malignant neoplasm of trachea, bronchus and lung
CPT/HCPCS: 94760 ×2; 85379; 80053; 80048; 84484; 85025; 88302; 71046 ×2; 57250; 57288; G0378 ×2; J2250; J0171; J0330; J1200; J1580 ×2; J1100; J1940; J2765; J2405; J2001; J2274; J3010; J1885; J2704; J2371

== ENCOUNTER → 2023-10-06 | Outpatient (CLI) | payer MEDICARE ==
--- NOTE | 2023-10-06 12:30 | XR ---
EXAMINATION TYPE: XR lumbosacral spine min 4V DATE OF EXAM: 10/06/2023 12:25 PM CLINICAL INDICATION:Female, 68 years old with history of S79.911A Rt Hip injury; COMPARISON: None TECHNIQUE: XR lumbosacral spine min 4V - Frontal, lateral , bilateral oblique and coned in L5-S1 late ral views of the spine. FINDINGS: No evidence of any acute osseous pathology. No evidence of loss of vertebral body height i s seen. There is normal alignment of the lumbar vertebral bodies. Mild scattered disc space narrowing . Multilevel marginal osteophyte formation throughout the visualized spine. There is facet joint arth ropathy throughout the spine. Scattered at least mild neural foraminal stenosis. Atherosclerosis of t he arterial vasculature. Right upper quadrant cholecystectomy clips. Severe atherosclerosis of the sp inous processes. IMPRESSION: 1. No acute fracture. 2. Mild to moderate multilevel disc degeneration. 3. Findings suggestive of Baastrup's disease.
--- NOTE | 2023-10-06 12:32 | XR ---
EXAMINATION TYPE: XR Hip Complete RT DATE OF EXAM: 10/06/2023 COMPARISON: NONE HISTORY: Pain TECHNIQUE: 2 views submitted FINDINGS: There is no evidence of erosive change or acute fracture. Mild to moderate concentric narrowing joint . Atrophic changes. Mild osteopenia. Mild SI joint hypertrophic arthropathy. IMPRESSION: 1. Moderate arthropathy, correlate for femoral acetabular impingement.
[2023-10-06 15:25] LABS: Basophils # (A) 0.06 X 10*3/uL (0.00-0.10); Basophils % (A) 0.7 %; Eosinophils # (A) 0.27 X 10*3/uL (0.04-0.35); HCT 46.1 % (37.2-46.3); HGB 14.9 g/dL (12.0-15.0); Lymphocytes # (A) 1.87 X 10*3/uL (0.90-5.00); Lymphocytes % (A) 20.4 %; MCH 31.8 pg (27.0-32.0); MCHC 32.3 g/dL (32.0-37.0); MCV 98.3 FL (80.0-97.0); Mean Platelet Volume 10.3 FL (9.5-12.2); Monocytes # (A) 0.61 X 10*3/uL (0.20-1.00); Monocytes % (A) 6.7 %; NRBC Per 100 WBC 0 X 10*3/uL (0.00-0.01); Neutrophils # (A) 6.33 X 10*3/uL (1.80-7.70); Neutrophils % (A) 69.1 %; Platelet Count 254 X 10*3/uL (140-440); RBC 4.69 X 10*6/uL (4.10-5.20); RDW 12.4 % (11.5-14.5); WBC 9.15 X 10*3/uL (4.50-10.00)
[2023-10-06 15:31] LABS: BUN/Creat Ratio 15.58 Ratio (12.00-20.00); Blood Urea Nitrogen 18.7 mg/dL (9.0-27.0); Calcium 9.6 mg/dL (8.7-10.3); Carbon Dioxide 23.9 mmol/L (21.6-31.8); Chloride 104 mmol/L (96-109); Glucose 127 mg/dL (70-110); Potassium 4.7 mmol/L (3.5-5.5); Sodium 140 mmol/L (135-145)
== END | disposition home or self-care (01) ==
LOC: LABPAT 11:12
PROVIDERS: ATTEND Urology
DX: Z01.812 Encounter for preprocedural laboratory examination (principal); N39.3 Stress incontinence (female) (male); S79.911A Unspecified injury of right hip, initial encounter
CPT/HCPCS: 72110; 73502; 80048; 85025

== ENCOUNTER 2023-10-14 07:23 | Day surgery (SDC) | payer MEDICARE ==
[2023-10-08 12:24] VITALS: BMI 50.1
--- NOTE | 2023-10-13 20:09 | P.GSHP ---
History of Present Illness H&P Date: 10/13/23 68 yo female with jeana who comes for a pubovaginal sling with юлия graft. The patient had a combined rectocele attempted pvs in march of 2023. The pvs was aborted due to passage of the graft thru the bladder neck. She has recouperated from her rectocele repair. Her jeana persists. 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 We discussed repeat attempt at the pvs, alternative surgical treatment , referral to a tertiary center for another evaluation and opinion. SHe will come for a repeat attempt at a pvs. this risks and complications including failure, retention, infection, erosion of the graft, injury to adjacent organs among others have been explained understood and accepted. - Constitutional Constitutional: Denies chills, Denies fever - EENT Eyes: denies blurred vision, denies pain Ears, nose, mouth and throat: Denies headache, Denies sore throat - Cardiovascular Cardiovascular: Denies chest pain, Denies shortness of breath - Respiratory Respiratory: Denies cough, Denies 7 - Gastrointestinal Gastrointestinal: Denies abdominal pain, Denies diarrhea, Denies nausea, Denies vomiting - Genitourinary (Female) Genitourinary: Denies dysuria, Denies hematuria - Genitourinary (Male) Genitourinary: Denies dysuria, Denies hematuria - Musculoskeletal Musculoskeletal: Denies myalgias - Integumentary Integumentary: Denies pruritus, Denies rash - Neurological Neurological: Denies numbness, Denies weakness - Psychiatric Psychiatric: Denies anxiety, Denies depression - Endocrine Endocrine: Denies fatigue, Denies weight change Past Medical History Past Medical History: GERD/Reflux, Hyperlipidemia, Hypertension, Myocardial Infarction ([place]), Osteoarthritis ([place]), Skin Disorder, Thyroid Disorder Additional Past Medical History / Comment(s): PSORIASIS. "I went numb and turned white when I had my heart attack." Last Myocardial Infarction Date:: 2004 History of Any Multi-Drug Resistant Organisms: None Reported Past Surgical History: Cholecystectomy, Heart Catheterization With Stent, Uterine Ablation Additional Past Surgical History / Comment(s): 3 cardiac stents. Rectocele repair. Past Anesthesia/Blood Transfusion Reactions: Postoperative Nausea & Vomiting (PO NV) Additional Past Anesthesia/Blood Transfusion Reaction / Comment(s): SEVERE PONV WITH ANESTHESIA. "I get deathly sick with anesthesia." "It was like the exorcist with nausea and vomitting." Date of Last Stent Placement:: 2004 Smoking Status: Never smoker - Past Family History Mother Family Medical History: Diabetes Mellitus, Thyroid Disorder Father Family Medical History: Cancer, Myocardial Infarction ([place]) Additional Family Medical History / Comment(s): LUNG CANCER -HEART PROBLEMS WITH TRIPLE BYPASS & [place]. Medications and Allergies Home Medications Medication Instructions Recorded Confirmed Type Omeprazole [PriLOSEC] 40 mg PO AC-SUPPER 10/17/15 10/08/23 History Acetaminophen [Tylenol] 650 mg PO DIRECTED PRN 03/27/23 10/08/23 History Advil (Unknown Dose) 1 tab PO DIRECTED PRN 03/27/23 10/08/23 History Aleve (Unknown Dose) 1 tab PO DIRECTED PRN 03/27/23 10/08/23 History Diclofenac Sodium [Voltaren] 75 mg PO BID PRN 03/27/23 10/08/23 History Levothyroxine Sodium 150 mcg PO QAM 03/27/23 10/08/23 History Losartan Potassium [Cozaar] 100 mg PO HS 03/27/23 10/08/23 History Rosuvastatin [Crestor] 10 mg PO HS 03/27/23 10/08/23 History amLODIPine BESYLATE [Norvasc] 5 mg PO HS 03/27/23 10/08/23 History Aspirin 325 mg PO QAM 10/08/23 10/08/23 History Co-Q10 (Dose Unknown) 1 dose PO QAM 10/08/23 History Allergies Allergy/AdvReac Type Severity Reaction Status Date / Time Penicillins Allergy Rash/Hives Verified 10/08/23 11:32 Surgical - Exam - General well developed, well nourished, no distress - Eyes normal ocular movement, no icteric - ENT no hearing loss, no congestion - Neck no masses, trachea midline - Respiratory normal respiratory effort, clear to auscultation - Abdomen Abdomen: soft, non tender, no guarding, no rigid, no rebound - Genitourinary hypermobile urethra with jeana, positive anna test. - Integumentary no rash, no abnormal pigmentation - Neurologic no disoriented, no combative - Psychiatric oriented to time, oriented to person, oriented to place, speech is normal, memory intact Assessment and Plan Assessment: Impression: jeana, multiple medical problems, obesity Plan; Pubovagianl sling with lynx graft and cystoscopy
[~2023-10-14 07:23] MED LIST changes: -DEXAMETHASONE SOD PHOSPHATE 4 MG/ML 1 ML VIAL IV ONE; +GENTAMICIN 130 MG in SODIUM CHLORIDE 0.9% 100 ML IVPB PRN; -GENTAMICIN 420 MG in SODIUM CHLORIDE 0.9% 100 ML IVPB PRN; +HYDROmorphone 0.5 MG/0.5 ML SYRINGE IVP PRN; -LIDOCAINE 1% (10MG/ML) FOR IV START INTRADERMA PRN; -ONDANSETRON 4 MG/2 ML VIAL IVP ONE; -Pre Op ABX Message 1 EACH MISC MISCELLANE ONE
[2023-10-14] MEDS: LACTATED RINGERS 1,000 ML IV SCH (08:00)
[2023-10-14] MEDS: ONDANSETRON 4 MG/2 ML VIAL IVP ONE ×2 (08:06→10:00)
[2023-10-14] MEDS: DEXAMETHASONE SOD PHOSPHATE 4 MG/ML 1 ML VIAL IV ONE (08:06)
[2023-10-14] MEDS ORDERED: PROPOFOL 10 MG/ML 20 ML VIAL IV ONE (08:35)
[2023-10-14] MEDS ORDERED: MIDAZOLAM 2 MG/2 ML VIAL ONE (08:35)
[2023-10-14] MEDS ORDERED: GLYCOPYRROLATE 0.2 MG/ML 2 ML VIAL ONE (08:35)
[2023-10-14] MEDS ORDERED: LIDOCAINE 1% INJ 10MG/ML (20 ML MDV) ONE (08:35)
[2023-10-14] MEDS ORDERED: ePHEDrine 50 MG/ML 1 ML VIAL ONE (08:35)
[2023-10-14] MEDS ORDERED: SUCCINYLCHOLINE CHLORIDE 200 MG/10 ML VIAL IV ONE (08:35)
[2023-10-14] MEDS ORDERED: fentaNYL (PF) 50 MCG/ML 2 ML AMP ONE (08:35)
[2023-10-14] MEDS ORDERED: diphenhydrAMINE 50 MG/ML 1 ML VIAL ONE (08:35)
[2023-10-14] MEDS: VASOPRESSIN 20 UNIT/ML 1 ML VIAL IM ONE (08:58)
[2023-10-14] MEDS: GENTAMICIN 80 MG in SODIUM CHLORIDE 0.9% 500 ML 500 ML IRRIGATION ONE (09:00)
[2023-10-14] MEDS ORDERED: ONDANSETRON 4 MG/2 ML VIAL IVP PRN (09:24)
--- NOTE | 2023-10-14 09:30 | P.OP ---
Date of Procedure: 10/14/23 Preoperative Diagnosis: stress urinary incontinence Postoperative Diagnosis: same Procedure(s) Performed: cystoscopy with a trans-obturator tape (obtryx 2) Anesthesia: [facility] Surgeon: David Tipton Estimated Blood Loss (ml): 25 Pathology: none sent Condition: stable Disposition: PACU Indications for Procedure: patient is 68. She has stress incontinence. She failed a pubovaginal sling. She comes for bladder neck suspension and trans-obturator tape or repeat pubovaginal sling. Description of Procedure: patient brought operating suite. Given general anesthesia. Placed in lithotomy position with a sterile prep and drape. A Lopez catheters introduced sterilely. The labia are sewn laterally with 2-0 silk. A vaginal speculum was introduced. The anterior vaginal mucosa was elevated off the submucosa. I tediously dissected bilaterally the bladder neck penetrate the endopelvic fascia. Based on the appearance of the urethra and the mobilization I will do a trans- obturator tape. 2 inguinal incisions are made at the level clitoris. The int roducers a passed through the inguinal incisions in the obturator foramen around the issue pubic ramus into the vaginal space bilaterally. I then do cystoscopy to make sure there is no bladder injury and there is none. The Lopez catheter introduced. I then attached the grafted introducers and pull them back through the inguinal incisions. The graft lay in the mid urethra nicely. I removed the redundant achieving a. I closed the vaginal mucosa with 2-0 Vicryl. I excised redundant graft at the inguinal incision close it with a 4-0 Monocryl. A vaginal packing is placed. The patient's awake and returned recovery in good condition. Blood loss is 25 mL.
[2023-10-14] MEDS: KETOROLAC 15 MG/ML 1 ML VIAL IVP ONE (10:00)
[2023-10-14] MEDS: HYDROmorphone 0.5 MG/0.5 ML SYRINGE IVP ONE (10:00)
[2023-10-14] MEDS: DEXTROSE 5%-0.45% NACL 1,000 ML IV SCH (11:11)
[2023-10-14] MEDS: PANTOPRAZOLE 40 MG TABLET PO SCH (18:08)
[2023-10-14] MEDS: Pre Op ABX Message 1 EACH MISC MISCELLANE ONE (18:19)
[2023-10-14] MEDS: ATORVASTATIN 20 MG TAB PO SCH (21:01)
[2023-10-14] MEDS: KETOROLAC 15 MG/ML 1 ML VIAL IVP PRN (21:05)
[2023-10-15 00:56] VITALS: TEMP 98.2
[2023-10-15] MEDS: LEVOTHYROXINE 75 MCG TAB PO SCH (05:52)
[2023-10-15] MEDS: LOSARTAN 50 MG TAB PO SCH (06:43)
[2023-10-15] MEDS: amLODIPine 5 MG TAB PO SCH (06:43)
[2023-10-15] MEDS: ACETAMINOPHEN TAB 325 MG TAB PO PRN (07:01)
[2023-10-15 08:19] VITALS: BP 115/75; PULSE 50; RESP 16
--- NOTE | 2023-10-15 10:51 | P.DS ---
Providers Expected date of discharge: 10/15/23 Attending physician: David Tipton Primary care physician: Sim Pyle Hospital Course: On the day of admission, the patient underwent an Obtryx sling procedure. The perioperative course was unremarkable. The patient remained afebrile with stable vital signs. The Lopez catheter was removed on the first postoperative day. The patient was subsequently able to void without difficulty, and emptied her bladder completely. She was comfortable at that time. Procedures: Obtryx sling on 10/14/2023. Patient Condition at Discharge: Good Plan - Discharge Summary Discharge Rx Participant: No New Discharge Prescriptions: New traMADol HCL 50 mg PO Q6H 3 Days #12 tab Cephalexin [Keflex] 500 mg PO Q8HR 3 Days #9 cap No Action Omeprazole [PriLOSEC] 40 mg PO AC-SUPPER amLODIPine BESYLATE [Norvasc] 5 mg PO HS Rosuvastatin [Crestor] 10 mg PO HS Losartan Potassium [Cozaar] 100 mg PO HS Levothyroxine Sodium 150 mcg PO QAM Diclofenac Sodium [Voltaren] 75 mg PO BID PRN PRN Reason: Pain Aspirin 325 mg PO QAM Co-Q10 (Dose Unknown) 1 dose PO QAM Acetaminophen [Tylenol] 650 mg PO DIRECTED PRN PRN Reason: Pain Aleve (Unknown Dose) 1 tab PO DIRECTED PRN PRN Reason: Pain Advil (Unknown Dose) 1 tab PO DIRECTED PRN PRN Reason: Pain Discharge Medication List Omeprazole [PriLOSEC] 40 mg PO AC-SUPPER 10/17/15 [History] Acetaminophen [Tylenol] 650 mg PO DIRECTED PRN 03/27/23 [History] Advil (Unknown Dose) 1 tab PO DIRECTED PRN 03/27/23 [History] Aleve (Unknown Dose) 1 tab PO DIRECTED PRN 03/27/23 [History] Diclofenac Sodium [Voltaren] 75 mg PO BID PRN 03/27/23 [History] Levothyroxine Sodium 150 mcg PO QAM 03/27/23 [History] Losartan Potassium [Cozaar] 100 mg PO HS 03/27/23 [History] Rosuvastatin [Crestor] 10 mg PO HS 03/27/23 [History] amLODIPine BESYLATE [Norvasc] 5 mg PO HS 03/27/23 [History] Aspirin 325 mg PO QAM 10/08/23 [History] Co-Q10 (Dose Unknown) 1 dose PO QAM 10/08/23 [History] Cephalexin [Keflex] 500 mg PO Q8HR 3 Days #9 cap 10/15/23 [Rx] traMADol HCL 50 mg PO Q6H 3 Days #12 tab 10/15/23 [Rx] Follow up Appointment(s)/Referral(s): David Tipton MD [STAFF PHYSICIAN] - 1 Week Patient Instructions/Handouts: *[facility] - Cystoscopy Discharge Instructions, *[facility] - (Anesthesia) Discharge Instructions Outpatient Surgery, Bladder Sling for Women ([facility]) Activity/Diet/Wound Care/Special Instructions: Diet as tolerated. No lifting, straining, or strenuous activity. No sexual intercourse. Discharge Disposition: HOME SELF-CARE
== END 2023-10-15 12:40 | disposition home or self-care (01) ==
LOC: OR 07:23 → 4FBP 09:23 → OR 10-15 12:40
PROVIDERS: ATTEND Urology
DX: N39.3 Stress incontinence (female) (male) (principal); I10 Essential (primary) hypertension; E78.5 Hyperlipidemia, unspecified; K21.9 Gastro-esophageal reflux disease without esophagitis; I25.2 Old myocardial infarction; M19.90 Unspecified osteoarthritis, unspecified site; Z90.49 Acquired absence of other specified parts of digestive tract; Z83.3 Family history of diabetes mellitus; Z83.49 Family history of other endocrine, nutritional and metabolic diseases; Z82.49 Family history of ischemic heart disease and other diseases of the circulatory system; Z79.899 Other long term (current) drug therapy; Z79.82 Long term (current) use of aspirin; Z88.0 Allergy status to penicillin
CPT/HCPCS: 57288; C1771; J1580; J1100; J2405; J1885; J1170

== ENCOUNTER 2023-10-18 20:24 | Inpatient (IN) | payer MEDICARE ==
--- NOTE | 2023-10-18 20:45 | ED ---
Fever HPI - General Source: patient, RN notes reviewed Mode of arrival: ambulatory Limitations: no limitations <Katia Garcia - Last Filed: 10/18/23 20:42> <Mohsen Rojas - Last Filed: 10/19/23 01:04> - General Chief Complaint: Fever Stated Complaint: Post-op comp. Time Seen by Provider: 10/18/23 20:40 - History of Present Illness Initial Comments: Quick noteis a 68-year-old female presents emergency department chief complaint of an abscess of her right glute for the last 3 days. Patient also has been experiencing fevers and. Patient underwent a bladder suspension surgery on Thursday and was discharged home on with Keflex. (Katia Garcia) 68-year-old female presenting with fever, weakness, pain and swelling in the right gluteal region which has been draining. Patient underwent bladder suspension surgery but has not had any complaints or symptoms regarding this. She has had a mild cough as well. (Mohsen Rojas) - Related Data Home Medications Medication Instructions Recorded Confirmed Omeprazole [PriLOSEC] 40 mg PO AC-SUPPER 10/17/15 10/14/23 Acetaminophen [Tylenol] 650 mg PO DIRECTED PRN 03/27/23 10/14/23 Advil (Unknown Dose) 1 tab PO DIRECTED PRN 03/27/23 10/14/23 Aleve (Unknown Dose) 1 tab PO DIRECTED PRN 03/27/23 10/14/23 Diclofenac Sodium [Voltaren] 75 mg PO BID PRN 03/27/23 10/14/23 Levothyroxine Sodium 150 mcg PO QAM 03/27/23 10/14/23 Losartan Potassium [Cozaar] 100 mg PO HS 03/27/23 10/14/23 Rosuvastatin [Crestor] 10 mg PO HS 03/27/23 10/14/23 amLODIPine BESYLATE [Norvasc] 5 mg PO HS 03/27/23 10/14/23 Aspirin 325 mg PO QAM 10/08/23 10/14/23 Co-Q10 (Dose Unknown) 1 dose PO QAM 10/08/23 Previous Rx's Medication Instructions Recorded Cephalexin [Keflex] 500 mg PO Q8HR 3 Days #9 cap 10/15/23 traMADol HCL 50 mg PO Q6H 3 Days #12 tab 10/15/23 Allergies Allergy/AdvReac Type Severity Reaction Status Date / Time Penicillins Allergy Rash/Hives Verified 10/18/23 20:30 Review of Systems ROS Other: All systems not noted in ROS Statement are negative. <Katia Garcia - Last Filed: 10/18/23 20:42> ROS Other: All systems not noted in ROS Statement are negative. <Mohsen Rojas - Last Filed: 10/19/23 01:04> ROS Statement: Those systems with pertinent positive or pertinent negative responses have been documented in the HPI. Past Medical History Past Medical History: GERD/Reflux, Hyperlipidemia, Hypertension, Myocardial Infarction ([place]), Osteoarthritis (OA), Skin Disorder, Thyroid Disorder Additional Past Medical History / Comment(s): LAST FEW WEEKS HEAVINESS IN CHEST AND PAIN LEFT ARM TEETH NUMB AND SOB AT TIMES, PSORIASIS TRACY HANDS AND RT INNER LEG- USES OTC RX, GLASSES TO READ ONLY Last Myocardial Infarction Date:: 2004 History of Any Multi-Drug Resistant Organisms: None Reported Past Surgical History: Cholecystectomy, Heart Catheterization With Stent, Uterine Ablation Additional Past Surgical History / Comment(s): 3 cardiac stents. bladder surgery Past Anesthesia/Blood Transfusion Reactions: Postoperative Nausea & Vomiting (PONV) Additional Past Anesthesia/Blood Transfusion Reaction / Comment(s): SEVERE PONV WITH ANESTHESIA Date of Last Stent Placement:: 2004 Past Psychological History: No Psychological Hx Reported Smoking Status: Never smoker Past Alcohol Use History: Rare Past Drug Use History: None Reported - Past Family History Mother Family Medical History: Diabetes Mellitus, Thyroid Disorder Father Family Medical History: Cancer, Myocardial Infarction ([place]) Additional Family Medical History / Comment(s): LUNG CANCER -HEART PROBLEMS WITH TRIPLE BYPASS & [place]. <Katia Garcia - Last Filed: 10/18/23 20:42> General Exam Limitations: no limitations <Katia Garcia - Last Filed: 10/18/23 20:42> General appearance: alert, in no apparent distress Head exam: Present: atraumatic, normocephalic Eye exam: Present: normal appearance, PERRL ENT exam: Present: normal exam Neck exam: Present: normal inspection. Absent: tenderness Respiratory exam: Present: decreased breath sounds. Absent: wheezes Cardiovascular Exam: Present: regular rate, normal rhythm GI/Abdominal exam: Present: soft. Absent: distended, tenderness Rectal exam: Present: other (Right gluteal abscess with surrounding cellulitis, fluctuant center, this is not adjacent to the rectum) Neurological exam: Present: alert Psychiatric exam: Present: normal affect, normal mood <Mohsen Rojas - Last Filed: 10/19/23 01:04> - General Exam Comments Initial Comments: Visual Physical Exam Vital signs reviewed General: Well-appearing, nontoxic, no acute distress. Head: Normocephalic, atraumatic Eyes: PERRLA, EOMI ENT: Airway patent Chest: Nonlabored breathing Skin: No visual rash, normal skin tone Neuro: Alert and oriented 3 Musculoskeletal: No gross abnormalities (Katia Garcia) Course Vital Signs 10/18/23 10/18/23 20:28 23:45 Temperature 100.3 F H 102.3 F H Pulse Rate 79 Respiratory 18 Rate Blood Pressure 161/93 O2 Sat by Pulse 93 L Oximetry Procedures - Incision & Drainage Consent Obtained: verbal consent Indication: Abscess Site: buttock Anesthetic Used: lidocaine 1% Amount (mLs): 3 I&D Cleaning Method: Chloroprep Sterile Field Used?: Yes Scalpel Used: #11 Ultrasound used: No Needle Aspiration Performed?: No Irrigation Performed?: No I&D Drainage Obtained: Pus Loculation Noted: probing needed to break Packing: Iodoform Culture Obtained?: No Patient Tolerated Procedure: well <Mohsen Rojas Lyn - Last Filed: 10/19/23 01:04> Medical Decision Making <Katia Garcia - Last Filed: 10/18/23 20:42> - Lab Data Result diagrams: 10/18/23 23:10 10/18/23 23:10 <Mohsen Rojas Lyn - Last Filed: 10/19/23 01:04> - Medical Decision Making I completed the quick note portion of this chart signed Katia Garcia PA-C (Katia Garcia) Was pt. sent in by a medical professional or institution (JACKY Pierre, PROVIDER ENROLLMENT SPECIALIST, urgent care, hospital, or jail...) When possible be specific @ -No Did you speak to anyone other than the patient for history (EMS, parent, family, police, friend...)? What history was obtained from this source @ -No Did you review nursing and triage notes (agree or disagree)? Why? @ -I reviewed and agree with nursing and triage notes Were old charts reviewed (outside hosp., previous admission, EMS record, old EKG, old radiological studies, urgent care reports/EKG's, jail records)? Report findings @ -No old charts were reviewed Differential Fever: Pneumonia, viral URI, endocarditis, myocarditis, pericarditis, otitis, sinusitis, peritonsillar Abscess, retropharyngeal Abscess, epiglottitis, per itonitis, appendicitis, Justine cystitis, diverticulitis, hepatitis, colitis, UTI, PID, TOA, pyelonephritis, prostatitis, epididymitis, meningitis, encephalitis, pulmonary embolism, CVA, thyroid storm, pancreatitis, adrenal crisis, cavernous sinus thrombosis, this is not meant to be an all-inclusive list. EKG interpreted by me (3pts min.). @ -As above X-rays interpreted by me (1pt min.). @ -Chest x-ray showing cardiomegaly with mild CHF no focal pneumonia CT interpreted by me (1pt min.). @ -None done U/S interpreted by me (1pt. min.). @ -None done What testing was considered but not performed or refused? (CT, X-rays, U/S, labs)? Why? @ -None What meds were considered but not given or refused? Why? @ -None Did you discuss the management of the patient with other professionals (tucker jackson i.e. , PA, PROVIDER ENROLLMENT SPECIALIST, lab, RT, psych nurse, social work nurse, shoe stamper, teacher, retail loss prevention officer, shelter case manager)? Give summary @ -No Was smoking cessation discussed for >3mins.? @ -No Was critical care preformed (if so, how long)? @ -No Were there social determinants of health that impacted care today? How? (Homelessness, low income, unemployed, alcoholism, drug addiction, transportation, low edu. Level, literacy, decrease access to med. care, retirement, rehab)? @ -No Was there de-escalation of care discussed even if they declined (Discuss DNR or withdrawal of care, Hospice)? DNR status @ -No What co-morbidities impacted this encounter? (DM, HTN, Smoking, COPD, CAD, Cancer, CVA, ARF, Chemo, Hep., AIDS, mental health diagnosis, sleep apnea, morbid obesity)? @ -[Obesity Was patient admitted / discharged? Hospital course, mention meds given and route, prescriptions, significant lab abnormalities, going to OR and other pertinent info. @ -68-year-old presenting with evaluation weakness fever, gluteal abscess. Patient has a large abscess on the right buttock. This is not near the rectum or anus. There is a 6 central fluctuance and significant surrounding cellulitis. I did drain this abscess with significant amount of purulence removed. Patient started on IV antibiotics and admitted to Dr. Pyle who is aware. Patient has a normal lactic acid and is not hypotensive. She started on 75 cc of fluid rather than larger amounts of IV fluid due to chest x-ray finding of mild CHF. Undiagnosed new problem with uncertain prognosis? @ -No Drug Therapy requiring intensive monitoring for toxicity (Heparin, Nitro, Insulin, Cardizem)? @ -No Were any procedures done? @Yes, incision and drainage Diagnosis/symptom? @Gluteal abscess with sepsis Acute, or Chronic, or Acute on Chronic? @Acute Uncomplicated (without systemic symptoms) or Complicated (systemic symptoms)? @ -Default Side effects of treatment? @ -No Exacerbation, Progression, or Severe Exacerbation? @ -No Poses a threat to life or bodily function? How? (Chest pain, [place], [place], pneumonia, PE, COPD, DKA, ARF, appy, cholecystitis, CVA, Diverticulitis, Homicidal, Suicidal, threat to staff... and all critical care pts) @ -[Yes, sepsis (Mohsen Rojas) - Lab Data Lab Results 10/18/23 10/18/23 10/18/23 Range/Units 23:05 23:10 23:10 WBC 16.5 H (3.8-10.6) k/uL RBC 4.32 (3.80-5.40) m/uL Hgb 13.7 (11.4-16.0) gm/dL Hct 42.2 (34.0-46.0) % MCV 97.6 (80.0-100.0) fL MCH 31.7 (25.0-35.0) pg MCHC 32.5 (31.0-37.0) g/dL RDW 12.6 (11.5-15.5) % Plt Count 260 (150-450) k/uL MPV 8.3 Neutrophils % 89 % Lymphocytes % 5 % Monocytes % 5 % Eosinophils % 1 % Basophils % 0 % Neutrophils # 14.6 H (1.3-7.7) k/uL Lymphocytes # 0.7 L (1.0-4.8) k/uL Monocytes # 0.9 (0-1.0) k/uL Eosinophils # 0.1 (0-0.7) k/uL Basophils # 0.0 (0-0.2) k/uL Sodium 133 L (137-145) mmol/L Potassium 4.4 (3.5-5.1) mmol/L Chloride 101 (98-107) mmol/L Carbon Dioxide 23 (22-30) mmol/L Anion Gap 9 mmol/L BUN 22 H (7-17) mg/dL Creatinine 1.05 H (0.52-1.04) mg/dL Est GFR (CKD-EPI)AfAm 64 (>60 ml/min/1.73 sqM) Est GFR (CKD-EPI)NonAf 55 (>60 ml/min/1.73 sqM) Glucose 168 H (74-99) mg/dL Plasma Lactic Acid Jaquan (0.7-2.0) mmol/L Calcium 8.2 L (8.4-10.2) mg/dL Total Bilirubin 0.9 (0.2-1.3) mg/dL AST 36 (14-36) U/L ALT 28 (4-34) U/L Alkaline Phosphatase 227 H (38-126) U/L Total Protein 6.0 L (6.3-8.2) g/dL Albumin 3.0 L (3.5-5.0) g/dL Urine Color Yellow Urine Appearance Clear (Clear) Urine pH 7.0 (5.0-8.0) Ur Specific [place] 1.023 (1.001-1.035) Urine Protein 2+ H (Negative) Urine Glucose (UA) Negative (Negative) Urine Ketones Trace H (Negative) Urine Blood Negative (Negative) Urine Nitrite Negative (Negative) Urine Bilirubin Negative (Negative) Urine Urobilinogen 2.0 (<2.0) mg/dL Ur Leukocyte Esterase Negative (Negative) Urine RBC 1 (0-5) /hpf Urine WBC 1 (0-5) /hpf Ur Squamous Epith Cells 1 (0-4) /hpf Urine Mucus Rare H (None) /hpf Influenza Type A (PCR) (Not Detectd) Influenza Type B (PCR) (Not Detectd) RSV (PCR) (Not Detectd) SARS-CoV-2 (PCR) (Not Detectd) 10/18/23 10/18/23 Range/Units 23:10 23:10 WBC (3.8-10.6) k/uL RBC (3.80-5.40) m/uL Hgb (11.4-16.0) gm/dL Hct (34.0-46.0) % MCV (80.0-100.0) fL MCH (25.0-35.0) pg MCHC (31.0-37.0) g/dL RDW (11.5-15.5) % Plt Count (150-450) k/uL MPV Neutrophils % % Lymphocytes % % Monocytes % % Eosinophils % % Basophils % % Neutrophils # (1.3-7.7) k/uL Lymphocytes # (1.0-4.8) k/uL Monocytes # (0-1.0) k/uL Eosinophils # (0-0.7) k/uL Basophils # (0-0.2) k/uL Sodium (137-145) mmol/L Potassium (3.5-5.1) mmol/L Chloride (98-107) mmol/L Carbon Dioxide (22-30) mmol/L Anion Gap mmol/L BUN (7-17) mg/dL Creatinine (0.52-1.04) mg/dL Est GFR (CKD-EPI)AfAm (>60 ml/min/1.73 sqM) Est GFR (CKD-EPI)NonAf (>60 ml/min/1.73 sqM) Glucose (74-99) mg/dL Plasma Lactic Acid Jaquan 1.6 (0.7-2.0) mmol/L Calcium (8.4-10.2) mg/dL Total Bilirubin (0.2-1.3) mg/dL AST (14-36) U/L ALT (4-34) U/L Alkaline Phosphatase (38-126) U/L Total Protein (6.3-8.2) g/dL Albumin (3.5-5.0) g/dL Urine Color Urine Appearance (Clear) Urine pH (5.0-8.0) Ur Specific [place] (1.001-1.035) Urine Protein (Negative) Urine Glucose (UA) (Negative) Urine Ketones (Negative) Urine Blood (Negative) Urine Nitrite (Negative) Urine Bilirubin (Negative) Urine Urobilinogen (<2.0) mg/dL Ur Leukocyte Esterase (Negative) Urine RBC (0-5) /hpf Urine WBC (0-5) /hpf Ur Squamous Epith Cells (0-4) /hpf Urine Mucus (None) /hpf Influenza Type A (PCR) Not Detected (Not Detectd) Influenza Type B (PCR) Not Detected (Not Detectd) RSV (PCR) Not Detected (Not Detectd) SARS-CoV-2 (PCR) Not Detected (Not Detectd) Disposition <Katia Garcia - Last Filed: 10/18/23 20:42> Is patient prescribed a controlled substance at d/c from ED?: No Time of Disposition: 01:04 <Mohsen Rojas - Last Filed: 10/19/23 01:04> Clinical Impression: Cellulitis, Abscess, gluteal, right Disposition: ADMITTED IP TO THIS HOSP Condition: Stable Referrals: Sim Pyle MD [Primary Care Provider] - 1-2 days
[2023-10-18] MEDS: ACETAMINOPHEN TAB 500 MG TAB PO STA (23:19)
[2023-10-18] MEDS: LIDOCAINE 1% INJ 10MG/ML (20 ML MDV) SQ ONE (23:21)
[2023-10-18 23:32] LABS: Basophils % (A) 0 %; Eosinophils # (A) 0.1 k/uL (0-0.7); Eosinophils % (A) 1 %; HCT 42.2 % (34.0-46.0); HGB 13.7 gm/dL (11.4-16.0); Lymphocytes # (A) 0.7 k/uL (1.0-4.8); Lymphocytes % (A) 5 %; MCH 31.7 pg (25.0-35.0); MCHC 32.5 g/dL (31.0-37.0); MCV 97.6 fL (80.0-100.0); Mean Platelet Volume 8.3; Monocytes # (A) 0.9 k/uL (0-1.0); Monocytes % (A) 5 %; Neutrophils # (A) 14.6 k/uL (1.3-7.7); Neutrophils % (A) 89 %; Platelet Count 260 k/uL (150-450); RBC 4.32 m/uL (3.80-5.40); RDW 12.6 % (11.5-15.5); WBC 16.5 k/uL (3.8-10.6)
[2023-10-18] MEDS ORDERED: VANCOMYCIN IV PER PHARMACY 1 EACH MISC MISCELLANE PRN (23:46)
[2023-10-18 23:47] LABS: Appearance,Urine Clear (Clear); Bilirubin,Urine Negative (Negative); Blood,Urine Negative (Negative); Color,Urine Yellow; Glucose,Urine (UA) Negative (Negative); Ketones,Urine Trace (Negative); Leukocyte Esterase,Urine Negative (Negative); Mucus,Urine Rare /hpf; Nitrite,Urine Negative (Negative); Protein,Urine 2+ (Negative); RBC,Urine 1 /hpf (0-5); Specific Gravity,Urine 1.023 (1.001-1.035); Squamous Epithelial Cell,Urine 1 /hpf (0-4); WBC,Urine 1 /hpf (0-5)
[2023-10-19 00:08] LABS: ALT 28 U/L (4-34); African American GFR (CKD) 64 (>60 ml/min/1.73 sqM); Anion Gap 9 mmol/L; Blood Urea Nitrogen 22 mg/dL (7-17); Calcium 8.2 mg/dL (8.4-10.2); Carbon Dioxide 23 mmol/L (22-30); Chloride 101 mmol/L (98-107); Glucose 168 mg/dL (74-99); Non-African American GFR(CKD) 55 (>60 ml/min/1.73 sqM); Sodium 133 mmol/L (137-145); Total Bilirubin 0.9 mg/dL (0.2-1.3)
[2023-10-19 00:09] LABS: AST 36 U/L (14-36); Alkaline Phosphatase 227 U/L (38-126); Potassium 4.4 mmol/L (3.5-5.1)
[2023-10-19] MEDS: SODIUM CHLORIDE 0.9% 1,000 ML IV SCH (00:48)
--- NOTE | 2023-10-19 00:55 | XR ---
EXAM: XR Chest, 1 View CLINICAL HISTORY: ITS.REASON XR Reason: cough/fever TECHNIQUE: Frontal view of the chest. COMPARISON: 04/02/2023. FINDINGS: Lungs: Mild prominence of central pulmonary vascular. No consolidative changes or pleural effusions. Pleural space: See above. Heart: There is cardiomegaly. Mediastinum: Unremarkable. Normal mediastinal contour. Bones/joints: Osseous structures and soft tissues are unremarkable. No acute fracture. IMPRESSION: 1. Cardiomegaly. 2. Consider incipient congestive heart failure.
[2023-10-19] MEDS: VANCOMYCIN 2,000 MG in SODIUM CHLORIDE 0.9% 500 ML 500 ML IVPB ONE (01:37)
[2023-10-19] MEDS ORDERED: NALOXONE 0.4 MG/ML 1 ML VIAL IV PRN (04:12)
[2023-10-19] MEDS ORDERED: ACETAMINOPHEN TAB 325 MG TAB PO PRN (04:12)
[2023-10-19] MEDS ORDERED: ETODOLAC 400 MG TAB PO PRN (08:56)
[2023-10-19] MEDS ORDERED: CO Q10 PO SCH (09:00)
[2023-10-19] MEDS: LEVOTHYROXINE 75 MCG TAB PO SCH (09:42)
[2023-10-19] MEDS: ASPIRIN 325 MG TAB PO SCH (09:42)
[2023-10-19] MEDS: ENOXAPARIN 40 MG/0.4 ML SYRINGE SQ SCH (09:42)
[2023-10-19] MEDS: traMADol 50 MG TAB PO SCH (09:43)
[2023-10-19] MEDS ORDERED: CEFEPIME 2 GM in SODIUM CHLORIDE 0.9% 100 ML IVPB SCH (17:45)
--- NOTE | 2023-10-19 17:46 | P.HPIM ---
History of Present Illness H&P Date: 10/19/23 Chief Complaint: Right gluteal abscess. HISTORY OF PRESENT ILLNESS: This is a 68-year-old female one of my patient with a previous medical history significant for hypertension and hypertensive cardio vascular disease, hyperlipidemia, hypothyroidism, GERD with esophagitis, coronary artery disease status post PCI of the RCA back in 2016 followed by a PCI of the RCA/PDA in 2019, obesity with obstructive sleep apnea and obesity hypoventilation syndrome not using his CPAP machine, history of spondylosis of the lumbar spine as well as osteoarthritis, patient underwent surgical intervention that was done by Dr. Tipton and with rectocele repair and pubovaginal sling, that was done in March 2023, she underwent a recent surgical intervention by Dr. Castro on 10/14/2023, she has done well, patient presented to the emergency department at [facility] yesterday with increased fever and chills, associated with increased swelling in the right gluteal area, she was diagnosed of having right gluteal abscess, she underwent incision and drainage in the ER, she had wound culture, she was started on IV antibiotic in the form of vancomycin with pharmacy to dose its peak and trough she did receive 1 dose of ceftriaxone we will switch her to cefepime 2 g IV piggyback every 8 hours along with the vancomycin, will obtain general surgery consultation for wider debridement of the right gluteal abscess, infectious disease consultation will be obtained, blood cultures and wound cultures including aerobic and anaerobic culture will be done as well. Patient was seen in the emergency department, her daughter was at the bedside, she is updated about the current condition. REVIEW OF SYSTEMS: Constitutional: positive for documented fever, chills, positive for night sweats. No weight change. positive for weakness, fatigue or lethargy. No daytime sleepiness. HEENT: No headache. No blurred vision or double vision, no loss of vision. No loss of Hearing, no ringing in the ears, no dizziness. No nasal drainage or congestion. No epistaxis. No sore throat. Lungs: positive for shortness of breath, no cough, no sputum production. No wheezing. Reports dyspnea with activity. Cardiovascular: No chest pain, no lower extremity edema. No palpitations. No paroxysmal nocturnal dyspnea. No orthopnea. No lightheadedness or dizziness. No syncopal episodes. Abdominal: Reports no abdominal pain. No nausea, vomiting. No diarrhea. No constipation. No bloody or tarry stools reports loss of appetite. Genitourinary: No dysuria, increased frequency, urgency. No urinary retention. Musculoskeletal: No myalgias. positive for muscle weakness, no gait dysfunction, no frequent falls. No back pain. No neck pain. Integumentary: wound on her right gluteal area , no lesions. No rash or pruritus. No unusual bruising. No change in hair or nails. Neurologic: No aphasia. No facial droop. No change in mentation. No head injury. No headache. No paralysis. No paresthesia. Psychiatric: No depression. No anxiety. No mood swings. Endocrine: No abnormal blood sugars. positive for weight change. PAST MEDICAL HISTORY: Hypertension and hypertensive cardiovascular disease. Hyperlipidemia. Hypothyroidism. GERD with esophagitis. Coronary artery disease status post PCI of the RCA 2015 and PDA 2018 Obesity with obstructive sleep apnea and obesity hypoventilation syndrome. spondylosis of the lumbar spine. Osteoarthritis. PAST SURGICAL HISTORY: Cholecystectomy. Colonoscopy 2015. Left heart catheterization with PCI of the RCA in 2015 Left heart catheterization with PCI of the RCA/PDA in 2018 Rectocele repair with pubovaginal sling SOCIAL HISTORY: Patient is a lifelong nonsmoker, she denies any drug use or abuse, she drinks occasionally, she lives with her . FAMILY HISTORY: Father at age of 71 from lung cancer and also had history of CAD, mother at age of 77 from complications of diabetes mellitus type 2. Patient has 3 brothers one with paralysis due to a wheelchair accident and 2 with diabetes mellitus type 2, patient has one son and one daughter no major medical problem is. PHYSICAL EXAMINATION: General: 68-year-old female laying down in bed in no acute distress. HEENT: Head is atraumatic, normocephalic, pupils were equal round reactive to light and recommendation, extraocular muscle movement were intact, sclera nonicteric, conjunctivae were pale, mucous membranes of the mouth are somewhat dry. Neck: Supple, no JVP, normal carotid upstroke bilaterally, no lymphadenopathy. Chest: Decreased breath sounds at the bases, few rhonchi, no expiratory wheezes, no chest wall tenderness, no intercostal retractions. Heart: First heart sound is normal, second heart sound is normal there is ANGELINA 2/6 located at the left sternal border Abdomen: Soft, nontender, nondistended, positive bowel sounds. Extremities: There is +2 edema no calf tenderness DP +2 bilaterally. Neurologic examination: Patient is awake alert and oriented X3, cranial nerves II-12 appear grossly intact, muscle power were 5 out of 5 in upper extremities and 5 out of 5 in bilateral lower extremities, deep tendon reflexes normal bilaterally. Skin examination: There is an induration to the right gluteal area, status post I&D by the emergency room physician, there is a drain in place. With purulent material coming out. ASSESSMENT AND PLAN: 1. Right gluteal abscess. Status post local incision and drainage that was done in the emergency department, with a drain placed and, wound cultures will be obtained, blood cultures will be obtained, continue vancomycin, add cefepime, discontinue Rocephin, infectious disease consultation, general surgery consultation for wider excision, monitor the patient symptoms very closely, continue current pain management, repeat the patient CBC and CMP tomorrow morning. Hep-Lock IV. 2. Mild cardiomegaly with pulmonary vascular congestion discontinue IV fluid resuscitation, started the patient on IV Lasix 40 mg IV push every 24 hours. 3. Hypertension and hypertensive cardiovascular disease. Continue patient on losartan 100 mg every day as well as amlodipine 5 mg once every day, monitor the patient blood pressure very closely. 4. Mixed hyperlipidemia. Continue patient on atorvastatin 40 mg once every day, monitor lipid panel, keep LDL 55-70 5. Coronary artery disease status post PCI of the RCA/PDA. Continue patient on aspirin 81 mg once every day, atorvastatin 40 mg once every day, follow-up with cardiology. 6. Hypothyroidism. Continue Synthroid 150 g orally once every day. 7. GERD with esophagitis. Continue Protonix 40 mg orally once every day. 8. Obesity with obstructive sleep apnea and obesity hypoventilation syndrome patient will need to have a CPAP as an outpatient. 9. DVT prophylaxis. Continue Lovenox 40 mg subcutaneous every 24 hours. 10. GI prophylaxis. Continue Protonix 40 mg orally once every day. 11. Admit to inpatient. Estimated length of stay 2 midnights. 12. Patient is full code. Past Medical History Past Medical History: GERD/Reflux, Hyperlipidemia, Hypertension, Myocardial Infarction ([place]), Osteoarthritis (OA), Skin Disorder, Thyroid Disorder Additional Past Medical History / Comment(s): LAST FEW WEEKS HEAVINESS IN CHEST AND PAIN LEFT ARM TEETH NUMB AND SOB AT TIMES, PSORIASIS TRACY HANDS AND RT INNER LEG- USES OTC RX, GLASSES TO READ ONLY Last Myocardial Infarction Date:: 2004 History of Any Multi-Drug Resistant Organisms: None Reported Past Surgical History: Cholecystectomy, Heart Catheterization With Stent, Uterine Ablation Additional Past Surgical History / Comment(s): 3 cardiac stents. bladder surgery Past Anesthesia/Blood Transfusion Reactions: Postoperative Nausea & Vomiting (PONV) Additional Past Anesthesia/Blood Transfusion Reaction / Comment(s): SEVERE PONV WITH ANESTHESIA Date of Last Stent Placement:: 2004 Past Psychological History: No Psychological Hx Reported Smoking Status: Never smoker Past Alcohol Use History: Rare Past Drug Use History: None Reported - Past Family History Mother Family Medical History: Diabetes Mellitus, Thyroid Disorder Father Family Medical History: Cancer, Myocardial Infarction ([place]) Additional Family Medical History / Comment(s): LUNG CANCER -HEART PROBLEMS WITH TRIPLE BYPASS & [place]. Medications and Allergies Home Medications Medication Instructions Recorded Confirmed Type Omeprazole [PriLOSEC] 40 mg PO AC-SUPPER 10/17/15 10/19/23 History Acetaminophen [Tylenol] 650 mg PO Q6H PRN 03/27/23 10/19/23 History Diclofenac Sodium [Voltaren] 75 mg PO BID PRN 03/27/23 10/19/23 History Levothyroxine Sodium 150 mcg PO QAM 03/27/23 10/19/23 History Losartan Potassium [Cozaar] 100 mg PO HS 03/27/23 10/19/23 History Rosuvastatin [Crestor] 10 mg PO HS 03/27/23 10/19/23 History amLODIPine BESYLATE [Norvasc] 5 mg PO HS 03/27/23 10/19/23 History Aspirin 325 mg PO QAM 10/08/23 10/19/23 History Co-Q10 (Dose Unknown) 1 dose PO QAM 10/08/23 10/19/23 History Cephalexin [Keflex] 500 mg PO Q8HR 3 Days #9 cap 10/15/23 10/19/23 Rx traMADol HCL 50 mg PO Q6H 3 Days #12 tab 10/15/23 10/19/23 Rx Ibuprofen [Advil] 200 mg PO Q6HR PRN 10/19/23 10/19/23 History Naproxen Sodium [Aleve] 220 mg PO BID PRN 10/19/23 10/19/23 History Allergies Allergy/AdvReac Type Severity Reaction Status Date / Time Penicillins Allergy Rash/Hives Verified 10/19/23 06:50 Physical Exam Vitals: Vital Signs Temp Pulse Resp BP Pulse Ox 10/19/23 09:00 98 F 71 20 143/72 92 L 10/19/23 05:00 65 18 98/56 92 L 10/19/23 01:00 98.8 F 71 18 112/72 94 L 10/18/23 23:45 102.3 F H 10/18/23 20:28 100.3 F H 79 18 161/93 93 L Results CBC & Chem 7: 10/18/23 23:10 10/18/23 23:10 Labs: Abnormal Lab Results - Last 24 Hours (Table) 10/18/23 10/18/23 10/18/23 Range/Units 23:05 23:10 23:10 WBC 16.5 H (3.8-10.6) k/uL Neutrophils # 14.6 H (1.3-7.7) k/uL Lymphocytes # 0.7 L (1.0-4.8) k/uL Sodium 133 L (137-145) mmol/L BUN 22 H (7-17) mg/dL Creatinine 1.05 H (0.52-1.04) mg/dL Glucose 168 H (74-99) mg/dL Calcium 8.2 L (8.4-10.2) mg/dL Alkaline Phosphatase 227 H (38-126) U/L Total Protein 6.0 L (6.3-8.2) g/dL Albumin 3.0 L (3.5-5.0) g/dL Urine Protein 2+ H (Negative) Urine Ketones Trace H (Negative) Urine Mucus Rare H (None) /hpf
[2023-10-19] MEDS ORDERED: VANCOMYCIN 2,000 MG in SODIUM CHLORIDE 0.9% 500 ML 500 ML IVPB SCH (20:00)
[2023-10-19] MEDS: PANTOPRAZOLE 40 MG TABLET PO SCH (20:45)
[2023-10-19] MEDS: FUROSEMIDE 10 MG/ML 4 ML VIAL IV SCH (20:45)
[2023-10-19] MEDS: amLODIPine 5 MG TAB PO SCH (20:45)
[2023-10-19] MEDS: ATORVASTATIN 20 MG TAB PO SCH (20:45)
[2023-10-19] MEDS: LOSARTAN 50 MG TAB PO SCH (20:46)
[2023-10-19] MEDS: VANCOMYCIN 2,250 MG in SODIUM CHLORIDE 0.9% 500 ML 500 ML IVPB SCH (21:56)
[2023-10-19] MEDS: ACETAMINOPHEN TAB 325 MG TAB PO PRN (22:04)
[2023-10-19] MEDS: CEFEPIME 2 GM in SODIUM CHLORIDE 0.9% 100 ML IVPB SCH (23:05)
[2023-10-20] MEDS ORDERED: VANCOMYCIN 2,000 MG in SODIUM CHLORIDE 0.9% 500 ML 500 ML IVPB SCH (01:00)
[2023-10-20 08:49] LABS: ALT 44 U/L (8-44); AST 67 U/L (13-35); Albumin 3.1 g/dL (3.8-4.9); Albumin/Globulin Ratio 1.11 Ratio (1.60-3.17); Alkaline Phosphatase 214 U/L (41-126); BUN/Creat Ratio 12.43 Ratio (12.00-20.00); Blood Urea Nitrogen 17.4 mg/dL (9.0-27.0); Calcium 8.6 mg/dL (8.7-10.3); Carbon Dioxide 26.3 mmol/L (21.6-31.8); Chloride 99 mmol/L (96-109); Globulin 2.8 g/dL (1.6-3.3); Glucose 106 mg/dL (70-110); Potassium 3.5 mmol/L (3.5-5.5); Sodium 140 mmol/L (135-145); Total Bilirubin 0.2 mg/dL (0.3-1.2); Total Protein 5.9 g/dL (6.2-8.2)
[2023-10-20 09:37] LABS: Basophils # (A) 0.13 X 10*3/uL (0.00-0.10); Basophils % (A) 0.9 %; Eosinophils # (A) 0.23 X 10*3/uL (0.04-0.35); Eosinophils % (A) 1.6 %; HCT 40.9 % (37.2-46.3); HGB 13.3 g/dL (12.0-15.0); Lymphocytes # (A) 1.94 X 10*3/uL (0.90-5.00); Lymphocytes % (A) 13.3 %; MCH 31.5 pg (27.0-32.0); MCHC 32.5 g/dL (32.0-37.0); MCV 96.9 FL (80.0-97.0); Mean Platelet Volume 10.4 FL (9.5-12.2); Monocytes # (A) 1.28 X 10*3/uL (0.20-1.00); Monocytes % (A) 8.8 %; NRBC Per 100 WBC 0 X 10*3/uL (0.00-0.01); Neutrophils % (A) 74.9 %; Platelet Count 307 X 10*3/uL (140-440); RBC 4.22 X 10*6/uL (4.10-5.20); RDW 12.7 % (11.5-14.5); WBC 14.56 X 10*3/uL (4.50-10.00)
--- NOTE | 2023-10-20 12:50 | P.GSCN ---
History of Present Illness Consult date: 10/20/23 History of present illness: CHIEF COMPLAINT: Right gluteal abscess HISTORY OF PRESENT ILLNESS: This is a 68-year-old female who presented to the hospital with complaints of right gluteal abscess x 4 days. Patient reports that the area became very hot red and inflamed. She came into the ER for further evaluation. They did I&D in the ER of the right gluteal abscess. The abscess is packed there is evidence of purulent drainage. Patient was having fevers as high as 102.3 yesterday. Patient reports being a borderline diabetic. She denies any history of MRSA. PAST MEDICAL HISTORY: GERD/Reflux, Hyperlipidemia, Hypertension, Myocardial Infarction ([place]), Osteoar thritis (OA), Skin Disorder, Thyroid Disorder, PAST SURGICAL HISTORY: Bladder suspension ,cholecystectomy, Heart Catheterization With Stent, Uterine Ablation MEDICATIONS: See below ALLERGIES: See below SOCIAL HISTORY: No illicit drug use. REVIEW OF SYSTEMS: CONSTITUTIONAL: Denies fever or chills. HEENT: Denies blurred vision, vision changes, or eye pain. Denies hemoptysis CARDIOVASCULAR: Denies chest pain or pressure. RESPIRATORY: No shortness of breath. GASTROINTESTINAL: See HPI for pertinent findings HEMATOLOGIC: Denies bleeding disorders. GENITOURINARY: Denies any blood in urine or increased urinary frequency. SKIN: Denies pruitis. Denies rash. PHYSICAL EXAM: VITAL SIGNS: Reviewed GENERAL: Well-developed in no acute distress. HEENT: No sclera icterus. Extraocular movements grossly intact. Moist buccal mucosa. Head is atraumatic, normocephalic. No nasal drainage. ABDOMEN: Soft. Obese. Nondistended. nontender NEUROLOGIC: Alert and oriented. Cranial nerves II through XII grossly intact. SKIN: Right gluteal abscess. Area tender with palpation some mild fluctuance and induration. There is purulent drainage and packing is intact LABORATORY DATA: WBC 16.5 to 14.56 Hgb 13.3 platelets 307 Sodium is 140 potassium 3.5 creatinine 1.4 Lactic acid 1.6 IMAGING: ASSESSMENT: 1. Right gluteal abscess status post I&D in ER 2. Pulmonary vascular congestion currently on IV Lasix PLAN: -Continue IV antibiotics -Continue offloading -Continue local wound care -Continue to observe -Abscess is currently draining. No plans for surgical intervention at this time Physician Field Return Repairer note has been reviewed by physician. Signing provider agrees with the documented findings, assessment, and plan of care. Past Medical History Past Medical History: GERD/Reflux, Hyperlipidemia, Hypertension, Myocardial Infarction ([place]), Osteoarthritis ([place]), Skin Disorder, Thyroid Disorder Additional Past Medical History / Comment(s): LAST FEW WEEKS HEAVINESS IN CHEST AND PAIN LEFT ARM TEETH NUMB AND SOB AT TIMES, PSORIASIS TRACY HANDS AND RT INNER LEG- USES OTC RX, GLASSES TO READ ONLY Last Myocardial Infarction Date:: 2004 History of Any Multi-Drug Resistant Organisms: None Reported Past Surgical History: Cholecystectomy, Heart Catheterization With Stent, Uterine Ablation Additional Past Surgical History / Comment(s): 3 cardiac stents. bladder surgery Past Anesthesia/Blood Transfusion Reactions: Postoperative Nausea & Vomiting (PONV) Additional Past Anesthesia/Blood Transfusion Reaction / Comm: SEVERE PONV WITH ANESTHESIA Date of Last Stent Placement:: 2004 Past Psychological History: No Psychological Hx Reported Smoking Status: Never smoker Past Alcohol Use History: Rare Past Drug Use History: None Reported - Past Family History Mother Family Medical History: Diabetes Mellitus, Thyroid Disorder Father Family Medical History: Cancer, Myocardial Infarction ([place]) Additional Family Medical History / Comment(s): LUNG CANCER -HEART PROBLEMS WITH TRIPLE BYPASS & [place]. Medications and Allergies Home Medications Medication Instructions Recorded Confirmed Type Omeprazole [PriLOSEC] 40 mg PO AC-SUPPER 10/17/15 10/19/23 History Acetaminophen [Tylenol] 650 mg PO Q6H PRN 03/27/23 10/19/23 History Diclofenac Sodium [Voltaren] 75 mg PO BID PRN 03/27/23 10/19/23 History Levothyroxine Sodium 150 mcg PO QAM 03/27/23 10/19/23 History Losartan Potassium [Cozaar] 100 mg PO HS 03/27/23 10/19/23 History Rosuvastatin [Crestor] 10 mg PO HS 03/27/23 10/19/23 History amLODIPine BESYLATE [Norvasc] 5 mg PO HS 03/27/23 10/19/23 History Aspirin 325 mg PO QAM 10/08/23 10/19/23 History Co-Q10 (Dose Unknown) 1 dose PO QAM 10/08/23 10/19/23 History Cephalexin [Keflex] 500 mg PO Q8HR 3 Days #9 cap 10/15/23 10/19/23 Rx traMADol HCL 50 mg PO Q6H 3 Days #12 tab 10/15/23 10/19/23 Rx Ibuprofen [Advil] 200 mg PO Q6HR PRN 10/19/23 10/19/23 History Naproxen Sodium [Aleve] 220 mg PO BID PRN 10/19/23 10/19/23 History Allergies Allergy/AdvReac Type Severity Reaction Status Date / Time Penicillins Allergy Rash/Hives Verified 10/19/23 06:50 Surgical - Exam Vital Signs Temp Pulse Resp BP Pulse Ox 100.3 F H 79 18 161/93 93 L 10/18/23 20:28 10/18/23 20:28 10/18/23 20:28 10/18/23 20:28 10/18/23 20:28 Results - Labs 10/20/23 04:11 10/20/23 04:11 Abnormal Lab Results - Last 24 Hours (Table) 10/20/23 10/20/23 Range/Units 04:11 04:11 WBC 14.56 H (4.50-10.00) X 10*3/uL Immature Gran # 0.08 H (0.00-0.04) X 10*3/uL Neutrophils # 10.90 H (1.80-7.70) X 10*3/uL Monocytes # 1.28 H (0.20-1.00) X 10*3/uL Basophils # 0.13 H (0.00-0.10) X 10*3/uL Anion Gap 14.70 H (4.00-12.00) mmol/L Est GFR (CKD-EPI) 41 L (>=60) Calcium 8.6 L (8.7-10.3) mg/dL Total Bilirubin 0.2 L (0.3-1.2) mg/dL AST 67 H (13-35) U/L Alkaline Phosphatase 214 H (41-126) U/L Total Protein 5.9 L (6.2-8.2) g/dL Albumin 3.1 L (3.8-4.9) g/dL Albumin/Globulin Ratio 1.11 L (1.60-3.17) Ratio Diabetes panel 10/20/23 Range/Units 04:11 Sodium 140 (135-145) mmol/L Potassium 3.5 (3.5-5.5) mmol/L Chloride 99 (96-109) mmol/L Carbon Dioxide 26.3 (21.6-31.8) mmol/L BUN 17.4 (9.0-27.0) mg/dL Creatinine 1.4 (0.6-1.5) mg/dL Glucose 106 (70-110) mg/dL Calcium 8.6 L (8.7-10.3) mg/dL AST 67 H (13-35) U/L ALT 44 (8-44) U/L Alkaline Phosphatase 214 H (41-126) U/L Total Protein 5.9 L (6.2-8.2) g/dL Albumin 3.1 L (3.8-4.9) g/dL Calcium panel 10/20/23 Range/Units 04:11 Calcium 8.6 L (8.7-10.3) mg/dL Albumin 3.1 L (3.8-4.9) g/dL Pituitary panel 10/20/23 Range/Units 04:11 Sodium 140 (135-145) mmol/L Potassium 3.5 (3.5-5.5) mmol/L Chloride 99 (96-109) mmol/L Carbon Dioxide 26.3 (21.6-31.8) mmol/L BUN 17.4 (9.0-27.0) mg/dL Creatinine 1.4 (0.6-1.5) mg/dL Glucose 106 (70-110) mg/dL Calcium 8.6 L (8.7-10.3) mg/dL Adrenal panel 10/20/23 Range/Units 04:11 Sodium 140 (135-145) mmol/L Potassium 3.5 (3.5-5.5) mmol/L Chloride 99 (96-109) mmol/L Carbon Dioxide 26.3 (21.6-31.8) mmol/L BUN 17.4 (9.0-27.0) mg/dL Creatinine 1.4 (0.6-1.5) mg/dL Glucose 106 (70-110) mg/dL Calcium 8.6 L (8.7-10.3) mg/dL Total Bilirubin 0.2 L (0.3-1.2) mg/dL AST 67 H (13-35) U/L ALT 44 (8-44) U/L Alkaline Phosphatase 214 H (41-126) U/L Total Protein 5.9 L (6.2-8.2) g/dL Albumin 3.1 L (3.8-4.9) g/dL
--- NOTE | 2023-10-20 16:31 | P.PN ---
Subjective Progress Note Date: 10/20/23 HISTORY OF PRESENT ILLNESS: This is a 68-year-old female one of my patient with a previous medical history significant for hypertension and hypertensive cardio vascular disease, hyperlipidemia, hypothyroidism, GERD with esophagitis, coronary artery disease status post PCI of the RCA back in 2016 followed by a PCI of the RCA/PDA in 2019, obesity with obstructive sleep apnea and obesity hypoventilation syndrome not using his CPAP machine, history of spondylosis of the lumbar spine as well as osteoarthritis, patient underwent surgical intervention that was done by Dr. Tipton and with rectocele repair and pubovaginal sling, that was done in March 2023, she underwent a recent surgical intervention by Dr. Castro on 10/14/2023, she has done well, patient presented to the emergency department at [facility] yesterday with increased fever and chills, associated with increased swelling in the right gluteal area, she was diagnosed of having right gluteal abscess, she underwent incision and drainage in the ER, she had wound culture, she was started on IV antibiotic in the form of vancomycin with pharmacy to dose its peak and trough she did receive 1 dose of ceftriaxone we will switch her to cefepime 2 g IV piggyback every 8 hours along with the vancomycin, will obtain general surgery consultation for wider debridement of the right gluteal abscess, infectious disease consultation will be obtained, blood cultures and wound cultures including aerobic and anaerobic culture will be done as well. Patient was seen in the emergency department, her daughter was at the bedside, she is updated about the current condition. 10/19: Patient lying in bed at this time. Patient has been seen by infectious disease as well as general surgery. No plan for surgical intervention at this time. WBC has decreased to 14.56. Continue cefepime 2 g every 8 hours IV piggyback and vancomycin 2250 mg once daily. Blood cultures negative, wound culture pending. Continue current treatment regimen. We will repeat a CBC and CMP tomorrow. REVIEW OF SYSTEMS: Constitutional: positive for documented fever, chills, positive for night sweats. No weight change. positive for weakness, fatigue or lethargy. No daytime sleepiness. HEENT: No headache. No blurred vision or double vision, no loss of vision. No loss of Hearing, no ringing in the ears, no dizziness. No nasal drainage or co ngestion. No epistaxis. No sore throat. Lungs: positive for shortness of breath, no cough, no sputum production. No wheezing. Reports dyspnea with activity. Cardiovascular: No chest pain, no lower extremity edema. No palpitations. No paroxysmal nocturnal dyspnea. No orthopnea. No lightheadedness or dizziness. No syncopal episodes. Abdominal: Reports no abdominal pain. No nausea, vomiting. No diarrhea. No constipation. No bloody or tarry stools reports loss of appetite. Genitourinary: No dysuria, increased frequency, urgency. No urinary retention. Musculoskeletal: No myalgias. positive for muscle weakness, no gait dysfunction, no frequent falls. No back pain. No neck pain. Integumentary: wound on her right gluteal area , no lesions. No rash or pruritus. No unusual bruising. No change in hair or nails. Neurologic: No aphasia. No facial droop. No change in mentation. No head injury. No headache. No paralysis. No paresthesia. Psychiatric: No depression. No anxiety. No mood swings. Endocrine: No abnormal blood sugars. positive for weight change. PHYSICAL EXAMINATION: General: 68-year-old female laying down in bed in no acute distress. HEENT: Head is atraumatic, normocephalic, pupils were equal round reactive to light and recommendation, extraocular muscle movement were intact, sclera nonicteric, conjunctivae were pale, mucous membranes of the mouth are somewhat dry. Neck: Supple, no JVP, normal carotid upstroke bilaterally, no lymphadenopathy. Chest: Decreased breath sounds at the bases, few rhonchi, no expiratory wheezes, no chest wall tenderness, no intercostal retractions. Heart: First heart sound is normal, second heart sound is normal there is ANGELINA 2/6 located at the left sternal border Abdomen: Soft, nontender, nondistended, positive bowel sounds. Extremities: There is +2 edema no calf tenderness DP +2 bilaterally. Neurologic examination: Patient is awake alert and oriented X3, cranial nerves II-12 appear grossly intact, muscle power were 5 out of 5 in upper extremities and 5 out of 5 in bilateral lower extremities, deep tendon reflexes normal bilaterally. Skin examination: There is an induration to the right gluteal area, status post I&D by the emergency room physician, there is a drain in place. With purulent material coming out. ASSESSMENT AND PLAN: 1. Right gluteal abscess. Status post local incision and drainage that was done in the emergency department. Blood cultures negative. Wound culture pending. Continue vancomycin once daily, and cefepime 2 g every 8 hours IV piggyback. Continue current pain management and we will repeat the CBC and CMP tomorrow. 2. Mild cardiomegaly with pulmonary vascular congestion discontinue IV fluid resuscitation, started the patient on IV Lasix 40 mg IV push every 24 hours. 3. Hypertension and hypertensive cardiovascular disease. Continue patient on losartan 100 mg every day as well as amlodipine 5 mg once every day, monitor the patient blood pressure very closely. 4. Mixed hyperlipidemia. Continue patient on atorvastatin 40 mg once every day, monitor lipid panel, keep LDL 55-70 5. Coronary artery disease status post PCI of the RCA/PDA. Continue patient on aspirin 81 mg once every day, atorvastatin 40 mg once every day, follow-up with cardiology. 6. Hypothyroidism. Continue Synthroid 150 g orally once every day. 7. GERD with esophagitis. Continue Protonix 40 mg orally once every day. 8. Obesity with obstructive sleep apnea and obesity hypoventilation syndrome patient will need to have a CPAP as an outpatient. 9. DVT prophylaxis. Continue Lovenox 40 mg subcutaneous every 24 hours. 10. GI prophylaxis. Continue Protonix 40 mg orally once every day. 11. Patient is full code. Impression and plan of care have been directed as dictated by the signing physician. Chel Desouza, nurse practitioner acting as scribe for signing physician. Objective - Vital Signs Vital signs: Vital Signs Temp 98.3 F 10/20/23 07:33 Pulse 61 10/20/23 10:06 Resp 16 10/20/23 10:06 BP 143/85 10/20/23 07:33 Pulse Ox 93 L 10/20/23 07:33 FiO2 Intake & Output 10/19/23 10/20/23 10/20/23 18:59 06:59 18:59 Intake Total 540 Balance 540 Weight 136.985 kg Intake: Oral 540 - Labs CBC & Chem 7: 10/20/23 04:11 10/20/23 04:11 Labs: Abnormal Lab Results - Last 24 Hours (Table) 10/20/23 10/20/23 Range/Units 04:11 04:11 WBC 14.56 H (4.50-10.00) X 10*3/uL Immature Gran # 0.08 H (0.00-0.04) X 10*3/uL Neutrophils # 10.90 H (1.80-7.70) X 10*3/uL Monocytes # 1.28 H (0.20-1.00) X 10*3/uL Basophils # 0.13 H (0.00-0.10) X 10*3/uL Anion Gap 14.70 H (4.00-12.00) mmol/L Est GFR (CKD-EPI) 41 L (>=60) Calcium 8.6 L (8.7-10.3) mg/dL Total Bilirubin 0.2 L (0.3-1.2) mg/dL AST 67 H (13-35) U/L Alkaline Phosphatase 214 H (41-126) U/L Total Protein 5.9 L (6.2-8.2) g/dL Albumin 3.1 L (3.8-4.9) g/dL Albumin/Globulin Ratio 1.11 L (1.60-3.17) Ratio
--- NOTE | 2023-10-20 22:14 | P.CONS ---
History of Present Illness - Reason for Consult Consult date: 10/20/23 Right gluteal abscess Requesting physician: Sim Pyle - Chief Complaint Right gluteal pain swelling and drainage x few days - History of Present Illness Patient is a 65-year-old female with a past medical history significant for hypertension hyperlipidemia reflux osteoarthritis patient presenting to the hospital for evaluation of right gluteal pain swelling redness apparently has been going on for about 4 days before presentation to the hospital patient denies any history of of any trauma mention may have started a small pimple that has got increased in size patient was complaining of pain on arrival to the ER to be sharp almost 10 out of 10 without radiation with associated swelling redness denies any drainage on presentation to the hospital patient did have a fever of 102.3 F patient was not tachycardic or hypotensive not hypoxic did have a white count of 16.5 with a left shift BUN/creatinine mildly elevated liver isms normal urine negative influenza RSV and COVID testing negative patient did have a bedside drainage by the ER physician patient was started on cefepime and vancomycin infectious disease was consulted for further management of antibiotic therapy Review of Systems Positive point and negatives has been mentioned in the HPI, complete review of systems was performed and all other systems are negative Past Medical History Past Medical History: GERD/Reflux, Hyperlipidemia, Hypertension, Myocardial Infarction ([place]), Osteoarthritis (OA), Skin Disorder, Thyroid Disorder Additional Past Medical History / Comment(s): LAST FEW WEEKS HEAVINESS IN CHEST AND PAIN LEFT ARM TEETH NUMB AND SOB AT TIMES, PSORIASIS TRACY HANDS AND RT INNER LEG- USES OTC RX, GLASSES TO READ ONLY Last Myocardial Infarction Date:: 2004 History of Any Multi-Drug Resistant Organisms: None Reported Past Surgical History: Cholecystectomy, Heart Catheterization With Stent, Uterine Ablation Additional Past Surgical History / Comment(s): 3 cardiac stents. bladder surgery Past Anesthesia/Blood Transfusion Reactions: Postoperative Nausea & Vomiting (PONV) Additional Past Anesthesia/Blood Transfusion Reaction / Comm: SEVERE PONV WITH ANESTHESIA Date of Last Stent Placement:: 2004 Past Psychological History: No Psychological Hx Reported Smoking Status: Never smoker Past Alcohol Use History: Rare Past Drug Use History: None Reported - Past Family History Mother Family Medical History: Diabetes Mellitus, Thyroid Disorder Father Family Medical History: Cancer, Myocardial Infarction ([place]) Additional Family Medical History / Comment(s): LUNG CANCER -HEART PROBLEMS WITH TRIPLE BYPASS & [place]. Medications and Allergies Home Medications Medication Instructions Recorded Confirmed Type Omeprazole [PriLOSEC] 40 mg PO AC-SUPPER 10/17/15 10/19/23 History Acetaminophen [Tylenol] 650 mg PO Q6H PRN 03/27/23 10/19/23 History Diclofenac Sodium [Voltaren] 75 mg PO BID PRN 03/27/23 10/19/23 History Levothyroxine Sodium 150 mcg PO QAM 03/27/23 10/19/23 History Losartan Potassium [Cozaar] 100 mg PO HS 03/27/23 10/19/23 History Rosuvastatin [Crestor] 10 mg PO HS 03/27/23 10/19/23 History amLODIPine BESYLATE [Norvasc] 5 mg PO HS 03/27/23 10/19/23 History Aspirin 325 mg PO QAM 10/08/23 10/19/23 History Co-Q10 (Dose Unknown) 1 dose PO QAM 10/08/23 10/19/23 History traMADol HCL 50 mg PO Q6H 3 Days #12 tab 10/15/23 10/19/23 Rx Amoxic-Pot Clav 875-125Mg 1 tab PO BID 10 Days #20 tab 10/23/23 Rx [Augmentin 875-125] Allergies Allergy/AdvReac Type Severity Reaction Status Date / Time No Known Allergies Allergy Verified 10/23/23 12:50 Physical Exam Vitals: Vital Signs Temp Pulse Pulse Resp BP BP Pulse Ox 10/20/23 10:06 61 16 10/20/23 07:33 98.3 F 61 16 143/85 93 L 10/20/23 02:46 98.6 F 58 L 15 132/82 93 L 10/19/23 21:30 100.4 F H 78 18 138/81 87 L 10/19/23 21:04 68 16 144/78 95 Intake and Output 10/19/23 10/20/23 10/20/23 22:59 06:59 14:59 Intake Total 540 Balance 540 Intake: Oral 540 Other: Weight 136.985 kg GENERAL DESCRIPTION: Elderly female lying in bed, no distress. No tachypnea or accessory muscle of respiration use. HEENT: Shows Pallor , no scleral icterus. Oral mucous membrane is dry. No pha ryngeal erythema or thrush NECK: Trachea central, no thyromegaly. LUNGS: Unlabored breathing. Clear to auscultation anteriorly. No wheeze or crackle. HEART: S1, S2, regular rate and rhythm. No loud murmur ABDOMEN: Soft, no tenderness , guarding or rigidity, no organomegaly EXTREMITIES: No edema of feet. SKIN: Right gluteal did have an open wound from drainage with some surrounding tenderness no significant induration NEUROLOGICAL: The patient is awake, alert, oriented x3, mood and affect normal. Results CBC & Chem 7: 10/22/23 05:37 10/23/23 07:20 Labs: Abnormal Lab Results - Last 24 Hours (Table) 10/20/23 10/20/23 Range/Units 04:11 04:11 WBC 14.56 H (4.50-10.00) X 10*3/uL Immature Gran # 0.08 H (0.00-0.04) X 10*3/uL Neutrophils # 10.90 H (1.80-7.70) X 10*3/uL Monocytes # 1.28 H (0.20-1.00) X 10*3/uL Basophils # 0.13 H (0.00-0.10) X 10*3/uL Anion Gap 14.70 H (4.00-12.00) mmol/L Est GFR (CKD-EPI) 41 L (>=60) Calcium 8.6 L (8.7-10.3) mg/dL Total Bilirubin 0.2 L (0.3-1.2) mg/dL AST 67 H (13-35) U/L Alkaline Phosphatase 214 H (41-126) U/L Total Protein 5.9 L (6.2-8.2) g/dL Albumin 3.1 L (3.8-4.9) g/dL Albumin/Globulin Ratio 1.11 L (1.60-3.17) Ratio Assessment and Plan (1) Abscess, gluteal, right Current Visit: Yes Status: Acute Code(s): L02.31 - CUTANEOUS ABSCESS OF BUTTOCK SNOMED Code(s): 43369704 (2) Cellulitis Current Visit: Yes Status: Acute Code(s): L03.90 - CELLULITIS, UNSPECIFIED SNOMED Code(s): 424914947 (3) Penicillin allergy Current Visit: Yes Status: Acute Code(s): Z88.0 - ALLERGY STATUS TO PENICILLIN SNOMED Code(s): 43203132 Plan: 1patient presented to hospital with sepsis in this patient who did have a fever elevated white count source right gluteal abscess likely from gram-positive skin candelario underlying gram-negative infection not excluded keeping in proximity to the GI tract 2-await further surgical drainage per general surgery 3-await cultures done in the ER 4-vancomycin pharmacy to dose target trough of 15 while watching kidney function and Vanco trough closely and cefepime empirically while waiting for the culture to finalize We will follow on clinical condition and cultures to further adjust medication if needed Thank you for this consultation we will follow the patient along with you Dictation was produced using [employer] dictation software. please excuse any grammatical, word or spelling errors. Time with Patient: Greater than 30
[2023-10-21 05:25] LABS: Basophils # (A) 0.1 k/uL (0-0.2); Basophils % (A) 1 %; Eosinophils # (A) 0.3 k/uL (0-0.7); Eosinophils % (A) 3 %; HCT 39.8 % (34.0-46.0); HGB 12.7 gm/dL (11.4-16.0); Lymphocytes # (A) 1.3 k/uL (1.0-4.8); Lymphocytes % (A) 11 %; MCH 31.5 pg (25.0-35.0); MCHC 31.9 g/dL (31.0-37.0); MCV 98.7 fL (80.0-100.0); Mean Platelet Volume 7.7; Monocytes # (A) 1.1 k/uL (0-1.0); Monocytes % (A) 9 %; Neutrophils # (A) 8.3 k/uL (1.3-7.7); Neutrophils % (A) 73 %; Platelet Count 279 k/uL (150-450); RBC 4.03 m/uL (3.80-5.40); RDW 12.7 % (11.5-15.5); WBC 11.3 k/uL (3.8-10.6)
[2023-10-21 05:31] LABS: ALT 45 U/L (4-34); AST 55 U/L (14-36); African American GFR (CKD) 63 (>60 ml/min/1.73 sqM); Albumin 2.4 g/dL (3.5-5.0); Albumin/Globulin Ratio 0.9; Alkaline Phosphatase 202 U/L (38-126); Anion Gap 8 mmol/L; Blood Urea Nitrogen 17 mg/dL (7-17); Calcium 7.9 mg/dL (8.4-10.2); Carbon Dioxide 27 mmol/L (22-30); Chloride 100 mmol/L (98-107); Globulin 2.7 g/dL; Glucose 123 mg/dL (74-99); Non-African American GFR(CKD) 55 (>60 ml/min/1.73 sqM); Potassium 3.2 mmol/L (3.5-5.1); Sodium 135 mmol/L (137-145); Total Bilirubin 0.4 mg/dL (0.2-1.3); Total Protein 5.1 g/dL (6.3-8.2)
[2023-10-21] MEDS ORDERED: Potassium Replacement Protocol 1 EACH MISC MISCELLANE PRN (14:33)
--- NOTE | 2023-10-21 15:27 | P.PN ---
Subjective Progress Note Date: 10/21/23 CHIEF COMPLAINT: Right gluteal abscess HISTORY OF PRESENT ILLNESS: Patient had I&D completed in the ER. Her pain is improving. She is still having drainage from the abscess. Afebrile. WBC is down from 14-11.3. Potassium 3.2 and being replaced PHYSICAL EXAM: VITAL SIGNS: Reviewed. GENERAL: Well-developed in no acute distress. SKIN: Right gluteal abscess is softer. There is drainage noted. Less tender with palpation. Erythema decreasing. ASSESSMENT: 1. Right gluteal abscess status post I&D in ER 2. Pulmonary vascular congestion currently on IV Lasix PLAN: -Abscess is currently draining. No plans for surgical intervention -Continue antibiotics -Continue local wound care -Continue offloading -Packing to be changed today Physician External Relations Director note has been reviewed by physician. Signing provider agrees with the documented findings, assessment, and plan of care. Objective - Vital Signs Vital signs: Vital Signs Temp 98.1 F 10/21/23 14:13 Pulse 57 L 10/21/23 14:13 Resp 19 10/21/23 14:13 BP 119/74 10/21/23 14:13 Pulse Ox 96 10/21/23 14:13 FiO2 Intake & Output 10/20/23 10/21/23 10/21/23 18:59 06:59 18:59 Intake Total 1080 Balance 1080 Weight 136.985 kg Intake: Oral 1080 Other: # Voids 5 5 - Labs CBC & Chem 7: 10/21/23 04:22 10/21/23 04:22 Labs: Abnormal Lab Results - Last 24 Hours (Table) 10/21/23 10/21/23 Range/Units 04:22 04:22 WBC 11.3 H (3.8-10.6) k/uL Neutrophils # 8.3 H (1.3-7.7) k/uL Monocytes # 1.1 H (0-1.0) k/uL Sodium 135 L (137-145) mmol/L Potassium 3.2 L (3.5-5.1) mmol/L Creatinine 1.07 H (0.52-1.04) mg/dL Glucose 123 H (74-99) mg/dL Calcium 7.9 L (8.4-10.2) mg/dL AST 55 H (14-36) U/L ALT 45 H (4-34) U/L Alkaline Phosphatase 202 H (38-126) U/L Total Protein 5.1 L (6.3-8.2) g/dL Albumin 2.4 L (3.5-5.0) g/dL Microbiology - Last 24 Hours (Table) 10/18/23 23:10 Blood Culture - Preliminary Blood 10/18/23 23:03 Blood Culture - Preliminary Blood 10/19/23 18:06 Blood Culture - Preliminary Blood 10/20/23 03:56 Gram Stain - Preliminary Buttock
[2023-10-21] MEDS: POTASSIUM CHLORIDE ER 20 MEQ TAB.ER PO STA (17:02)
--- NOTE | 2023-10-21 19:29 | P.PN ---
Subjective Progress Note Date: 10/21/23 HISTORY OF PRESENT ILLNESS: This is a 68-year-old female one of my patient with a previous medical history significant for hypertension and hypertensive cardio vascular disease, hyperlipidemia, hypothyroidism, GERD with esophagitis, coronary artery disease status post PCI of the RCA back in 2016 followed by a PCI of the RCA/PDA in 2019, obesity with obstructive sleep apnea and obesity hypoventilation syndrome not using his CPAP machine, history of spondylosis of the lumbar spine as well as osteoarthritis, patient underwent surgical intervention that was done by Dr. Tipton and with rectocele repair and pubovaginal sling, that was done in March 2023, she underwent a recent surgical intervention by Dr. Castro on 10/14/2023, she has done well, patient presented to the emergency department at [facility] yesterday with increased fever and chills, associated with increased swelling in the right gluteal area, she was diagnosed of having right gluteal abscess, she underwent incision and drainage in the ER, she had wound culture, she was started on IV antibiotic in the form of vancomycin with pharmacy to dose its peak and trough she did receive 1 dose of ceftriaxone we will switch her to cefepime 2 g IV piggyback every 8 hours along with the vancomycin, will obtain general surgery consultation for wider debridement of the right gluteal abscess, infectious disease consultation will be obtained, blood cultures and wound cultures including aerobic and anaerobic culture will be done as well. Patient was seen in the emergency department, her daughter was at the bedside, she is updated about the current condition. 10/19: Patient lying in bed at this time. Patient has been seen by infectious disease as well as general surgery. No plan for surgical intervention at this time. WBC has decreased to 14.56. Continue cefepime 2 g every 8 hours IV piggyback and vancomycin 2250 mg once daily. Blood cultures negative, wound culture pending. Continue current treatment regimen. We will repeat a CBC and CMP tomorrow. 10/20: Continue cefepime 2 g every 8 hours IV piggyback and vancomycin 2250 mg once daily. Wound culture still pending. Continue 40 mg of IV Lasix for mild cardiomegaly. Continue wound care as ordered and offloading. Plan for discharge next 24 to 48 hours. REVIEW OF SYSTEMS: Constitutional: positive for documented fever, chills, positive for night sweats. No weight change. positive for weakness, fatigue or lethargy. No daytime sleepiness. HEENT: No headache. No blurred vision or double vision, no loss of vision. No loss of Hearing, no ringing in the ears, no dizziness. No nasal drainage or congestion. No epistaxis. No sore throat. Lungs: positive for shortness of breath, no cough, no sputum production. No wheezing. Reports dyspnea with activity. Cardiovascular: No chest pain, no lower extremity edema. No palpitations. No paroxysmal nocturnal dyspnea. No orthopnea. No lightheadedness or dizziness. No syncopal episodes. Abdominal: Reports no abdominal pain. No nausea, vomiting. No diarrhea. No constipation. No bloody or tarry stools reports loss of appetite. Genitourinary: No dysuria, increased frequency, urgency. No urinary retention. Musculoskeletal: No myalgias. positive for muscle weakness, no gait dy sfunction, no frequent falls. No back pain. No neck pain. Integumentary: wound on her right gluteal area , no lesions. No rash or pruritus. No unusual bruising. No change in hair or nails. Neurologic: No aphasia. No facial droop. No change in mentation. No head injury. No headache. No paralysis. No paresthesia. Psychiatric: No depression. No anxiety. No mood swings. Endocrine: No abnormal blood sugars. positive for weight change. PHYSICAL EXAMINATION: General: 68-year-old female laying down in bed in no acute distress. HEENT: Head is atraumatic, normocephalic, pupils were equal round reactive to light and recommendation, extraocular muscle movement were intact, sclera nonicteric, conjunctivae were pale, mucous membranes of the mouth are somewhat dry. Neck: Supple, no JVP, normal carotid upstroke bilaterally, no lymphadenopathy. Chest: Decreased breath sounds at the bases, few rhonchi, no expiratory wheezes, no chest wall tenderness, no intercostal retractions. Heart: First heart sound is normal, second heart sound is normal there is ANGELINA 2/6 located at the left sternal border Abdomen: Soft, nontender, nondistended, positive bowel sounds. Extremities: There is +2 edema no calf tenderness DP +2 bilaterally. Neurologic examination: Patient is awake alert and oriented X3, cranial nerves II-12 appear grossly intact, muscle power were 5 out of 5 in upper extremities and 5 out of 5 in bilateral lower extremities, deep tendon reflexes normal bilaterally. Skin examination: There is an induration to the right gluteal area, status post I&D by the emergency room physician, there is a drain in place. With purulent material coming out. ASSESSMENT AND PLAN: 1. Right gluteal abscess. Status post local incision and drainage that was done in the emergency department. Blood cultures negative. Wound culture pending. Continue vancomycin once daily, and cefepime 2 g every 8 hours IV piggyback. Continue current pain management and we will repeat the CBC and CMP tomorrow. 2. Mild cardiomegaly with pulmonary vascular congestion discontinue IV fluid resuscitation, started the patient on IV Lasix 40 mg IV push every 24 hours. 3. Hypertension and hypertensive cardiovascular disease. Continue patient on losartan 100 mg every day as well as amlodipine 5 mg once every day, monitor the patient blood pressure very closely. 4. Mixed hyperlipidemia. Continue patient on atorvastatin 40 mg once every day, monitor lipid panel, keep LDL 55-70 5. Coronary artery disease status post PCI of the RCA/PDA. Continue patient on aspirin 81 mg once every day, atorvastatin 40 mg once every day, follow-up with cardiology. 6. Hypothyroidism. Continue Synthroid 150 g orally once every day. 7. GERD with esophagitis. Continue Protonix 40 mg orally once every day. 8. Obesity with obstructive sleep apnea and obesity hypoventilation syndrome patient will need to have a CPAP as an outpatient. 9. DVT prophylaxis. Continue Lovenox 40 mg subcutaneous every 24 hours. 10. GI prophylaxis. Continue Protonix 40 mg orally once every day. 11. Patient is full code. Impression and plan of care have been directed as dictated by the signing physician. Chel Desouza, nurse practitioner acting as scribe for signing physician. Objective - Vital Signs Vital signs: Vital Signs Temp 98.1 F 10/21/23 14:13 Pulse 57 L 10/21/23 14:13 Resp 19 10/21/23 14:13 BP 119/74 10/21/23 14:13 Pulse Ox 96 10/21/23 14:13 FiO2 Intake & Output 10/21/23 10/21/23 10/22/23 06:59 18:59 06:59 Intake Total 1080 Balance 1080 Weight 136.985 kg Intake: Oral 1080 Other: # Voids 5 3 - Labs CBC & Chem 7: 10/21/23 04:22 10/21/23 04:22 Labs: Abnormal Lab Results - Last 24 Hours (Table) 10/21/23 10/21/23 Range/Units 04:22 04:22 WBC 11.3 H (3.8-10.6) k/uL Neutrophils # 8.3 H (1.3-7.7) k/uL Monocytes # 1.1 H (0-1.0) k/uL Sodium 135 L (137-145) mmol/L Potassium 3.2 L (3.5-5.1) mmol/L Creatinine 1.07 H (0.52-1.04) mg/dL Glucose 123 H (74-99) mg/dL Calcium 7.9 L (8.4-10.2) mg/dL AST 55 H (14-36) U/L ALT 45 H (4-34) U/L Alkaline Phosphatase 202 H (38-126) U/L Total Protein 5.1 L (6.3-8.2) g/dL Albumin 2.4 L (3.5-5.0) g/dL Microbiology - Last 24 Hours (Table) 10/18/23 23:10 Blood Culture - Preliminary Blood 10/18/23 23:03 Blood Culture - Preliminary Blood 10/19/23 18:06 Blood Culture - Preliminary Blood
[2023-10-22] MEDS: POTASSIUM CHLORIDE ER 20 MEQ TAB.ER PO SCH (08:37)
[2023-10-22 08:40] LABS: HCT 38.4 % (37.2-46.3); HGB 12.8 g/dL (12.0-15.0); MCH 31.3 pg (27.0-32.0); MCHC 33.3 g/dL (32.0-37.0); MCV 93.9 FL (80.0-97.0); Mean Platelet Volume 9.5 FL (9.5-12.2); NRBC Per 100 WBC 0 X 10*3/uL (0.00-0.01); Platelet Count 358 X 10*3/uL (140-440); RBC 4.09 X 10*6/uL (4.10-5.20); RDW 12.6 % (11.5-14.5); WBC 12.02 X 10*3/uL (4.50-10.00)
[2023-10-22 09:10] LABS: Basophils # (A) 0.08 X 10*3/uL (0.00-0.10); Basophils % (A) 0.7 %; Eosinophils # (A) 0.24 X 10*3/uL (0.04-0.35); Lymphocytes # (A) 1.94 X 10*3/uL (0.90-5.00); Lymphocytes % (A) 16.1 %; Monocytes # (A) 1.51 X 10*3/uL (0.20-1.00); Monocytes % (A) 12.6 %; Neutrophils # (A) 8.03 X 10*3/uL (1.80-7.70); Neutrophils % (A) 66.8 %; RBC Morphology Normal (Normal)
[2023-10-22 09:47] LABS: ALT 35 U/L (8-44); AST 38 U/L (13-35); Albumin/Globulin Ratio 1.25 Ratio (1.60-3.17); Alkaline Phosphatase 234 U/L (41-126); BUN/Creat Ratio 11.18 Ratio (12.00-20.00); Blood Urea Nitrogen 12.3 mg/dL (9.0-27.0); Calcium 8.3 mg/dL (8.7-10.3); Carbon Dioxide 28.4 mmol/L (21.6-31.8); Chloride 98 mmol/L (96-109); Globulin 2.4 g/dL (1.6-3.3); Glucose 128 mg/dL (70-110); Potassium 3.6 mmol/L (3.5-5.5); Sodium 138 mmol/L (135-145); Total Bilirubin 0.3 mg/dL (0.3-1.2); Total Protein 5.4 g/dL (6.2-8.2)
--- NOTE | 2023-10-22 10:41 | P.PN ---
Subjective Progress Note Date: 10/22/23 CHIEF COMPLAINT: Right gluteal abscess HISTORY OF PRESENT ILLNESS: Patient had I&D completed in the ER of right gluteal abscess. Patient reports she is feeling better each day. She reports decrease in pain. She is still having drainage from the abscess. Packing was changed yesterday and is again scheduled to be changed this morning. Afebrile. WBC 1112 PHYSICAL EXAM: VITAL SIGNS: Reviewed. GENERAL: Well-developed in no acute distress. SKIN: Right gluteal abscess is softer. There is drainage noted. Less tender with palpation. Erythema decreasing. ASSESSMENT: 1. Right gluteal abscess status post I&D in ER PLAN: -Abscess is currently draining. No plans for surgical intervention -Continue antibiotics per ID service -Continue local wound care -Continue offloading -Packing to be changed daily Physician Lobster Fisherman note has been reviewed by physician. Signing provider agrees with the documented findings, assessment, and plan of care. Objective - Vital Signs Vital signs: Vital Signs Temp 97.3 F L 10/22/23 07:22 Pulse 54 L 10/22/23 07:22 Resp 17 10/22/23 07:22 BP 128/82 10/22/23 07:22 Pulse Ox 90 L 10/22/23 07:22 FiO2 Intake & Output 10/21/23 10/22/23 10/22/23 18:59 06:59 18:59 Other: # Voids 3 6 - Labs CBC & Chem 7: 10/22/23 05:37 10/22/23 05:37 Labs: Abnormal Lab Results - Last 24 Hours (Table) 10/22/23 10/22/23 Range/Units 05:37 05:37 WBC 12.02 H (4.50-10.00) X 10*3/uL RBC 4.09 L (4.10-5.20) X 10*6/uL Immature Gran # 0.22 H (0.00-0.04) X 10*3/uL Neutrophils # 8.03 H (1.80-7.70) X 10*3/uL Monocytes # 1.51 H (0.20-1.00) X 10*3/uL Est GFR (CKD-EPI) 55 L (>=60) BUN/Creatinine Ratio 11.18 L (12.00-20.00) Ratio Glucose 128 H (70-110) mg/dL Calcium 8.3 L (8.7-10.3) mg/dL AST 38 H (13-35) U/L Alkaline Phosphatase 234 H (41-126) U/L Total Protein 5.4 L (6.2-8.2) g/dL Albumin 3.0 L (3.8-4.9) g/dL Albumin/Globulin Ratio 1.25 L (1.60-3.17) Ratio Microbiology - Last 24 Hours (Table) 10/20/23 03:56 Gram Stain - Final Buttock Wound Culture - Final 10/19/23 18:06 Blood Culture - Preliminary Blood 10/18/23 23:10 Blood Culture - Preliminary Blood 10/18/23 23:03 Blood Culture - Preliminary Blood
--- NOTE | 2023-10-22 15:36 | P.PN ---
Subjective Progress Note Date: 10/21/23 Principal diagnosis: Reason for follow-up is right gluteal abscess Patient is a 65-year-old female with a past medical history significant for hypertension hyperlipidemia reflux osteoarthritis patient presenting to the hospital for evaluation of right gluteal pain swelling redness, patient be diagnosed with right gluteal abscess status post drainage procedure in the ER. On today's evaluation that is 10/21/2023,the patient remains to be afebrile, patient is on room air not requiring supplemental oxygen and denies any shortness of breath no chest pain or cough.Patient denies having any nausea or vomiting, no abdominal pain and no diarrhea pain to right gluteal area has slightly decreased in intensity Patient white count is down to 11.3, creatinine 1.07 Objective - Vital Signs Vital signs: Vital Signs Temp 98.1 F 10/21/23 14:13 Pulse 57 L 10/21/23 14:13 Resp 19 10/21/23 14:13 BP 119/74 10/21/23 14:13 Pulse Ox 96 10/21/23 14:13 FiO2 Intake & Output 10/20/23 10/21/23 10/21/23 18:59 06:59 18:59 Intake Total 1080 Balance 1080 Weight 136.985 kg Intake: Oral 1080 Other: # Voids 5 5 - Exam GENERAL DESCRIPTION: An elderly female lying in bed in no distress RESPIRATORY SYSTEM: Unlabored breathing , decreased breath sounds at bases HEART: S1 S2 regular rate and rhythm , ABDOMEN: Soft , no tenderness EXTREMITIES: No edema feet - Labs CBC & Chem 7: 10/22/23 05:37 10/22/23 05:37 Labs: Abnormal Lab Results - Last 24 Hours (Table) 10/21/23 10/21/23 Range/Units 04:22 04:22 WBC 11.3 H (3.8-10.6) k/uL Neutrophils # 8.3 H (1.3-7.7) k/uL Monocytes # 1.1 H (0-1.0) k/uL Sodium 135 L (137-145) mmol/L Potassium 3.2 L (3.5-5.1) mmol/L Creatinine 1.07 H (0.52-1.04) mg/dL Glucose 123 H (74-99) mg/dL Calcium 7.9 L (8.4-10.2) mg/dL AST 55 H (14-36) U/L ALT 45 H (4-34) U/L Alkaline Phosphatase 202 H (38-126) U/L Total Protein 5.1 L (6.3-8.2) g/dL Albumin 2.4 L (3.5-5.0) g/dL Microbiology - Last 24 Hours (Table) 10/18/23 23:10 Blood Culture - Preliminary Blood 10/18/23 23:03 Blood Culture - Preliminary Blood 10/19/23 18:06 Blood Culture - Preliminary Blood 10/20/23 03:56 Gram Stain - Preliminary Buttock Assessment and Plan (1) Abscess, gluteal, right Current Visit: Yes Status: Acute Code(s): L02.31 - CUTANEOUS ABSCESS OF BUTTOCK SNOMED Code(s): 87332177 Plan: 1patient presented to hospital with sepsis in this patient who did have a fever elevated white count source right gluteal abscess likely from gram-positive skin candelario underlying gram-negative infection not excluded keeping in proximity to the GI tract 2-cultures currently pending 3patient to continue with the vancomycin and cefepime while waiting for the culture to finalize Dictation was produced using [employer] dictation software. please excuse any grammatical, word or spelling errors. Time with Patient: Less than 30
--- NOTE | 2023-10-22 15:37 | P.PN ---
Subjective Progress Note Date: 10/22/23 Principal diagnosis: Reason for follow-up is right gluteal abscess Patient is a 65-year-old female with a past medical history significant for hypertension hyperlipidemia reflux osteoarthritis patient presenting to the hospital for evaluation of right gluteal pain swelling redness, patient be diagnosed with right gluteal abscess status post drainage procedure in the ER. On today's evaluation that is 10/22/2023, the patient continues to be afebrile, the patient is on room air and breathing comfortably, the Pt denies having any chest pain or cough, the patient denies having any abdominal pain no vomiting or any diarrhea patient mention improvement in pain to the right gluteal area no further drainage. Patient white count slightly up to 12.02, creatinine 1.1 cultures so far negative Objective - Vital Signs Vital signs: Vital Signs Temp 97.3 F L 10/22/23 07:22 Pulse 54 L 10/22/23 07:22 Resp 17 10/22/23 08:35 BP 128/82 10/22/23 07:22 Pulse Ox 90 L 10/22/23 07:22 FiO2 Intake & Output 10/21/23 10/22/23 10/22/23 18:59 06:59 18:59 Other: # Voids 3 6 - Exam GENERAL DESCRIPTION: An elderly female lying in bed in no distress RESPIRATORY SYSTEM: Unlabored breathing , decreased breath sounds at bases HEART: S1 S2 regular rate and rhythm , ABDOMEN: Soft , no tenderness EXTREMITIES: No edema feet - Labs CBC & Chem 7: 10/22/23 05:37 10/22/23 05:37 Labs: Abnormal Lab Results - Last 24 Hours (Table) 10/22/23 10/22/23 Range/Units 05:37 05:37 WBC 12.02 H (4.50-10.00) X 10*3/uL RBC 4.09 L (4.10-5.20) X 10*6/uL Immature Gran # 0.22 H (0.00-0.04) X 10*3/uL Neutrophils # 8.03 H (1.80-7.70) X 10*3/uL Monocytes # 1.51 H (0.20-1.00) X 10*3/uL Est GFR (CKD-EPI) 55 L (>=60) BUN/Creatinine Ratio 11.18 L (12.00-20.00) Ratio Glucose 128 H (70-110) mg/dL Calcium 8.3 L (8.7-10.3) mg/dL AST 38 H (13-35) U/L Alkaline Phosphatase 234 H (41-126) U/L Total Protein 5.4 L (6.2-8.2) g/dL Albumin 3.0 L (3.8-4.9) g/dL Albumin/Globulin Ratio 1.25 L (1.60-3.17) Ratio Microbiology - Last 24 Hours (Table) 10/20/23 03:56 Gram Stain - Final Buttock Wound Culture - Final 10/19/23 18:06 Blood Culture - Preliminary Blood 10/18/23 23:10 Blood Culture - Preliminary Blood 10/18/23 23:03 Blood Culture - Preliminary Blood Assessment and Plan (1) Penicillin allergy Current Visit: Yes Status: Acute Code(s): Z88.0 - ALLERGY STATUS TO PENICILLIN SNOMED Code(s): 10912524 (2) Abscess, gluteal, right Current Visit: Yes Status: Acute Code(s): L02.31 - CUTANEOUS ABSCESS OF BUTTOCK SNOMED Code(s): 64756179 Plan: 1patient presented to hospital with sepsis in this patient who did have a fever elevated white count source right gluteal abscess likely from gram-positive skin candelario underlying gram-negative infection not excluded keeping in proximity to the GI tract 2-cultures currently pending 3patient currently covered vancomycin and cefepime while waiting for the culture to finalize to determine discharge antibiotics Dictation was produced using [employer] dictation software. please excuse any grammatical, word or spelling errors. Time with Patient: Less than 30
--- NOTE | 2023-10-22 18:30 | P.PN ---
Subjective Progress Note Date: 10/22/23 HISTORY OF PRESENT ILLNESS: This is a 68-year-old female one of my patient with a previous medical history significant for hypertension and hypertensive cardio vascular disease, hyperlipidemia, hypothyroidism, GERD with esophagitis, coronary artery disease status post PCI of the RCA back in 2016 followed by a PCI of the RCA/PDA in 2019, obesity with obstructive sleep apnea and obesity hypoventilation syndrome not using his CPAP machine, history of spondylosis of the lumbar spine as well as osteoarthritis, patient underwent surgical intervention that was done by Dr. Tipton and with rectocele repair and pubovaginal sling, that was done in March 2023, she underwent a recent surgical intervention by Dr. Castro on 10/14/2023, she has done well, patient presented to the emergency department at [facility] yesterday with increased fever and chills, associated with increased swelling in the right gluteal area, she was diagnosed of having right gluteal abscess, she underwent incision and drainage in the ER, she had wound culture, she was started on IV antibiotic in the form of vancomycin with pharmacy to dose its peak and trough she did receive 1 dose of ceftriaxone we will switch her to cefepime 2 g IV piggyback every 8 hours along with the vancomycin, will obtain general surgery consultation for wider debridement of the right gluteal abscess, infectious disease consultation will be obtained, blood cultures and wound cultures including aerobic and anaerobic culture will be done as well. Patient was seen in the emergency department, her daughter was at the bedside, she is updated about the current condition. 10/19: Patient lying in bed at this time. Patient has been seen by infectious disease as well as general surgery. No plan for surgical intervention at this time. WBC has decreased to 14.56. Continue cefepime 2 g every 8 hours IV piggyback and vancomycin 2250 mg once daily. Blood cultures negative, wound culture pending. Continue current treatment regimen. We will repeat a CBC and CMP tomorrow. 10/20: Continue cefepime 2 g every 8 hours IV piggyback and vancomycin 2250 mg once daily. Wound culture still pending. Continue 40 mg of IV Lasix for mild cardiomegaly. Continue wound care as ordered and offloading. Plan for discharge next 24 to 48 hours. 10/21: Patient lying in bed at this time feeling much better. Gram stain shows moderate polymorphonuclear leukocytes, rare epithelial cells, moderate gram- negative bacilli, and few gram-positive cocci. Aerobic culture shows rare normal skin candelario. Continue same antibiotics, wound care as ordered, and offloading. Stop IV Lasix. We will plan for discharge tomorrow. REVIEW OF SYSTEMS: Constitutional: positive for documented fever, chills, positive for night sweats. No weight change. positive for weakness, fatigue or lethargy. No daytime sleepiness. HEENT: No headache. No blurred vision or double vision, no loss of vision. No loss of Hearing, no ringing in the ears, no dizziness. No nasal drainage or congestion. No epistaxis. No sore throat. Lungs: positive for shortness of breath, no cough, no sputum production. No wheezing. Reports dyspnea with activity. Cardiovascular: No chest pain, no lower extremity edema. No palpitations. No paroxysmal nocturnal dyspnea. No orthopnea. No lightheadedness or dizziness. No syncopal episodes. Abdominal: Reports no abdominal pain. No nausea, vomiting. No diarrhea. No constipation. No bloody or tarry stools reports loss of appetite. Genitourinary: No dysuria, increased frequency, urgency. No urinary retention. Musculoskeletal: No myalgias. positive for muscle weakness, no gait dysfunction, no frequent falls. No back pain. No neck pain. Integumentary: wound on her right gluteal area , no lesions. No rash or pruritus. No unusual bruising. No change in hair or nails. Neurologic: No aphasia. No facial droop. No change in mentation. No head injury. No headache. No paralysis. No paresthesia. Psychiatric: No depression. No anxiety. No mood swings. Endocrine: No abnormal blood sugars. positive for weight change. PHYSICAL EXAMINATION: General: 68-year-old female laying down in bed in no acute distress. HEENT: Head is atraumatic, normocephalic, pupils were equal round reactive to li ght and recommendation, extraocular muscle movement were intact, sclera nonicteric, conjunctivae were pale, mucous membranes of the mouth are somewhat dry. Neck: Supple, no JVP, normal carotid upstroke bilaterally, no lymphadenopathy. Chest: Decreased breath sounds at the bases, few rhonchi, no expiratory wheezes, no chest wall tenderness, no intercostal retractions. Heart: First heart sound is normal, second heart sound is normal there is ANGELINA 2/6 located at the left sternal border Abdomen: Soft, nontender, nondistended, positive bowel sounds. Extremities: There is +2 edema no calf tenderness DP +2 bilaterally. Neurologic examination: Patient is awake alert and oriented X3, cranial nerves II-12 appear grossly intact, muscle power were 5 out of 5 in upper extremities and 5 out of 5 in bilateral lower extremities, deep tendon reflexes normal bilaterally. Skin examination: There is an induration to the right gluteal area, status post I&D by the emergency room physician, there is a drain in place. With purulent material coming out. ASSESSMENT AND PLAN: 1. Right gluteal abscess. Status post local incision and drainage that was done in the emergency department. Blood cultures negative. Wound culture pending. Continue vancomycin once daily, and cefepime 2 g every 8 hours IV piggyback. Continue current pain management and we will repeat the CBC and CMP tomorrow. 2. Mild cardiomegaly with pulmonary vascular congestion. Stable; stop IV Lasix. 3. Hypertension and hypertensive cardiovascular disease. Continue patient on losartan 100 mg every day as well as amlodipine 5 mg once every day, monitor the patient blood pressure very closely. 4. Mixed hyperlipidemia. Continue patient on atorvastatin 40 mg once every day, monitor lipid panel, keep LDL 55-70 5. Coronary artery disease status post PCI of the RCA/PDA. Continue patient on aspirin 81 mg once every day, atorvastatin 40 mg once every day, follow-up with cardiology. 6. Hypothyroidism. Continue Synthroid 150 g orally once every day. 7. GERD with esophagitis. Continue Protonix 40 mg orally once every day. 8. Obesity with obstructive sleep apnea and obesity hypoventilation syndrome patient will need to have a CPAP as an outpatient. 9. DVT prophylaxis. Continue Lovenox 40 mg subcutaneous every 24 hours. 10. GI prophylaxis. Continue Protonix 40 mg orally once every day. 11. Patient is full code. Impression and plan of care have been directed as dictated by the signing physician. Chel Desouza, nurse practitioner acting as scribe for signing physician. Objective - Vital Signs Vital signs: Vital Signs Temp 98.1 F 10/22/23 14:08 Pulse 68 10/22/23 14:08 Resp 17 10/22/23 14:08 BP 125/84 10/22/23 14:08 Pulse Ox 94 L 10/22/23 14:08 FiO2 Intake & Output 10/21/23 10/22/23 10/22/23 18:59 06:59 18:59 Other: # Voids 3 6 - Labs CBC & Chem 7: 10/22/23 05:37 10/22/23 05:37 Labs: Abnormal Lab Results - Last 24 Hours (Table) 10/22/23 10/22/23 Range/Units 05:37 05:37 WBC 12.02 H (4.50-10.00) X 10*3/uL RBC 4.09 L (4.10-5.20) X 10*6/uL Immature Gran # 0.22 H (0.00-0.04) X 10*3/uL Neutrophils # 8.03 H (1.80-7.70) X 10*3/uL Monocytes # 1.51 H (0.20-1.00) X 10*3/uL Est GFR (CKD-EPI) 55 L (>=60) BUN/Creatinine Ratio 11.18 L (12.00-20.00) Ratio Glucose 128 H (70-110) mg/dL Calcium 8.3 L (8.7-10.3) mg/dL AST 38 H (13-35) U/L Alkaline Phosphatase 234 H (41-126) U/L Total Protein 5.4 L (6.2-8.2) g/dL Albumin 3.0 L (3.8-4.9) g/dL Albumin/Globulin Ratio 1.25 L (1.60-3.17) Ratio Microbiology - Last 24 Hours (Table) 10/18/23 23:10 Blood Culture - Preliminary Blood 10/18/23 23:03 Blood Culture - Preliminary Blood 10/20/23 03:56 Gram Stain - Final Buttock Wound Culture - Final 10/19/23 18:06 Blood Culture - Preliminary Blood
[2023-10-22] MEDS: VANCOMYCIN TROUGH DUE 1 EACH MISC MISCELLANE ONE (19:47)
[2023-10-23 08:07] LABS: African American GFR (CKD) 67 (>60 ml/min/1.73 sqM); Non-African American GFR(CKD) 58 (>60 ml/min/1.73 sqM)
[2023-10-23 08:36] VITALS: TEMP 97.7
--- NOTE | 2023-10-23 13:05 | P.PN ---
Subjective Progress Note Date: 10/23/23 CHIEF COMPLAINT: Right gluteal abscess HISTORY OF PRESENT ILLNESS: Patient had I&D completed in the ER of right gluteal abscess. Patient continues to feel better each day. She reports that the packing was changed yesterday. She is still having drainage. Afebrile. PHYSICAL EXAM: VITAL SIGNS: Reviewed. GENERAL: Well-developed in no acute distress. SKIN: Right gluteal abscess is softer. There is drainage noted. Less tender with palpation. Erythema decreasing. ASSESSMENT: 1. Right gluteal abscess status post I&D in ER PLAN: -Abscess is currently draining. No plans for surgical intervention -Continue antibiotics per ID service -Continue local wound care -Continue offloading Physician Tufter Operator note has been reviewed by physician. Signing provider agrees with the documented findings, assessment, and plan of care. Objective - Vital Signs Vital signs: Vital Signs Temp 97.7 F 10/23/23 07:12 Pulse 52 L 10/23/23 07:12 Resp 20 10/23/23 08:00 BP 147/67 10/23/23 07:12 Pulse Ox 95 10/23/23 07:12 FiO2 Intake & Output 10/22/23 10/23/23 10/23/23 18:59 06:59 18:59 Other: Voiding Method Toilet # Voids 3 1 - Labs CBC & Chem 7: 10/22/23 05:37 10/23/23 07:20 Labs: Microbiology - Last 24 Hours (Table) 10/19/23 18:06 Blood Culture - Preliminary Blood 10/18/23 23:10 Blood Culture - Preliminary Blood 10/18/23 23:03 Blood Culture - Preliminary Blood 10/20/23 03:56 Gram Stain - Final Buttock Wound Culture - Final
--- NOTE | 2023-10-23 13:29 | P.PN ---
Subjective Progress Note Date: 10/23/23 Principal diagnosis: Reason for follow-up is right gluteal abscess Patient is a 65-year-old female with a past medical history significant for hypertension hyperlipidemia reflux osteoarthritis patient presenting to the hospital for evaluation of right gluteal pain swelling redness, patient be diagnosed with right gluteal abscess status post drainage procedure in the ER. On today's evaluation that is 10/23/2023, Patient is afebrile patient is currently on room air and denies having any shortness of breath, the patient denies any chest pain or cough, the patient denies any nausea vomiting did not have any abdominal pain and no diarrhea, mention pain to the right gluteal area has decreased intensity still have significant drainage from the right wound. No CBC was done today creatinine 1.01 culture has been negative Objective - Vital Signs Vital signs: Vital Signs Temp 97.7 F 10/23/23 07:12 Pulse 52 L 10/23/23 07:12 Resp 20 10/23/23 07:12 BP 147/67 10/23/23 07:12 Pulse Ox 95 10/23/23 07:12 FiO2 Intake & Output 10/22/23 10/23/23 10/23/23 18:59 06:59 18:59 Other: # Voids 3 - Exam GENERAL DESCRIPTION: An elderly female lying in bed in no distress RESPIRATORY SYSTEM: Unlabored breathing , decreased breath sounds at bases HEART: S1 S2 regular rate and rhythm , ABDOMEN: Soft , no tenderness, left gluteal cellulitis induration improving per surgical CLAM TREADER note EXTREMITIES: No edema feet - Labs CBC & Chem 7: 10/22/23 05:37 10/23/23 07:20 Labs: Microbiology - Last 24 Hours (Table) 10/19/23 18:06 Blood Culture - Preliminary Blood 10/18/23 23:10 Blood Culture - Preliminary Blood 10/18/23 23:03 Blood Culture - Preliminary Blood 10/20/23 03:56 Gram Stain - Final Buttock Wound Culture - Final Assessment and Plan (1) Penicillin allergy Current Visit: Yes Status: Acute Code(s): Z88.0 - ALLERGY STATUS TO PENICILLIN SNOMED Code(s): 33200212 (2) Abscess, gluteal, right Current Visit: Yes Status: Acute Code(s): L02.31 - CUTANEOUS ABSCESS OF BUTTOCK SNOMED Code(s): 02263182 Plan: 1patient presented to hospital with sepsis in this patient who did have a fever elevated white count source right gluteal abscess likely from gram-positive skin candelario underlying gram-negative infection not excluded keeping in proximity to the GI tract 2-cultures has been negative so far 3patient mention penicillin allergy as a child however has taken amoxicillin without any problem clinical doubt true penicillin allergy we will give her a dose of Augmentin in the patient tolerates plan is to finish therapy with Augmentin x 10 days and close outpatient follow-up Dictation was produced using [employer] dictation software. please excuse any grammatical, word or spelling errors. Time with Patient: Greater than 30
[2023-10-23] MEDS: AMOXIC-POT CLAV 875-125MG 1 EACH TAB PO STA (13:57)
--- NOTE | 2023-10-23 15:06 | P.DS ---
Providers Date of admission: 10/19/23 04:12 Expected date of discharge: 10/23/23 Attending physician: Sim Pyle Consults: 10/19/23 17:35 Consult Physician Routine Consulting Provider: Franklin Gomez Consult Reason/Comments: Right Gluteal abscess Do you want consulting provider notified?: Yes 10/20/23 07:44 Consult Physician Routine Consulting Provider: Xavier Hubbard Consult Reason/Comments: right gluteal abscess Do you want consulting provider notified?: Yes Primary care physician: Sim Pyle Hospital Course: HISTORY OF PRESENT ILLNESS: This is a 68-year-old female one of my patient with a previous medical history significant for hypertension and hypertensive cardio vascular disease, hyperlipidemia, hypothyroidism, GERD with esophagitis, coronary artery disease status post PCI of the RCA back in 2015 followed by a PCI of the RCA/PDA in 2019, obesity with obstructive sleep apnea and obesity hypoventilation syndrome not using his CPAP machine, history of spondylosis of the lumbar spine as well as osteoarthritis, patient underwent surgical intervention that was done by Dr. Tipton and with rectocele repair and pubovaginal sling, that was done in March 2023, she underwent a recent surgical intervention by Dr. Castro on 10/14/2023, she has done well, patient presented to the emergency department at [facility] yesterday with increased fever and chills, associated with increased swelling in the right gluteal area, she was diagnosed of having right gluteal abscess, she underwent incision and drainage in the ER, she had wound culture, she was started on IV antibiotic in the form of vancomycin with pharmacy to dose its peak and trough she did receive 1 dose of ceftriaxone we will switch her to cefepime 2 g IV piggyback every 8 hours along with the vancomycin, will obtain general surgery consultation for wider debridement of the right gluteal abscess, infectious disease consultation will be obtained, blood cultures and wound cultures including aerobic and anaerobic culture will be done as well. Patient was seen in the emergency department, her daughter was at the bedside, she is updated about the current condition. 10/19: Patient lying in bed at this time. Patient has been seen by infectious disease as well as general surgery. No plan for surgical intervention at this time. WBC has decreased to 14.56. Continue cefepime 2 g every 8 hours IV piggyback and vancomycin 2250 mg once daily. Blood cultures negative, wound culture pending. Continue current treatment regimen. We will repeat a CBC and CMP tomorrow. 10/20: Continue cefepime 2 g every 8 hours IV piggyback and vancomycin 2250 mg once daily. Wound culture still pending. Continue 40 mg of IV Lasix for mild cardiomegaly. Continue wound care as ordered and offloading. Plan for discharge next 24 to 48 hours. 10/21: Patient lying in bed at this time feeling much better. Gram stain shows moderate polymorphonuclear leukocytes, rare epithelial cells, moderate gram- negative bacilli, and few gram-positive cocci. Aerobic culture shows rare normal skin candelario. Continue same antibiotics, wound care as ordered, and offloading. Stop IV Lasix. We will plan for discharge tomorrow. 10/22: Patient is laying down in bed in no apparent distress, she continues to have significant drainage from her right gluteal abscess site, thus will need to be packed and the dressing changed on a daily basis at least, she was switched to oral antibiotic in the form of amoxicillin/clavulanate 875/125 mg orally twice every day for 10 days, she is to follow-up with us as an outpatient on Thursday she is to follow-up with infectious disease and surgery as an outpatient 1 week from now, patient knows that this is can get worse she may have recollection of the abscess at that point she may need to go for more deeper surgical intervention, she will have a home health care to follow-up with her on Thursday, she will have her daughter help her tomorrow packing and putting the dressing changes as well, patient was taken off diuretics at this time, will reevaluate as an outpatient the need of diuretics, she was taken off potassium supplement, limit the amount of nonsteroidal anti-inflammatory medicine due to her increased risk of heart failure. Discharge diagnoses: 1. Right gluteal abscess. Status post local incision and drainage 2. Mild cardiomegaly with pulmonary vascular congestion. 3. Hypertension and hypertensive cardiovascular disease. 4. Mixed hyperlipidemia. 5. Coronary artery disease status post PCI of the RCA/PDA. 6. Hypothyroidism. 7. GERD with esophagitis. 8. Obesity with obstructive sleep apnea and obesity hypoventilation syndrome Patient Condition at Discharge: Stable Plan - Discharge Summary Discharge Rx Participant: No New Discharge Prescriptions: New Amoxic-Pot Clav 875-125Mg [Augmentin 875-125] 1 tab PO BID 10 Days #20 tab Continue Omeprazole [PriLOSEC] 40 mg PO AC-SUPPER amLODIPine BESYLATE [Norvasc] 5 mg PO HS Rosuvastatin [Crestor] 10 mg PO HS Losartan Potassium [Cozaar] 100 mg PO HS Levothyroxine Sodium 150 mcg PO QAM Diclofenac Sodium [Voltaren] 75 mg PO BID PRN PRN Reason: Pain Aspirin 325 mg PO QAM Co-Q10 (Dose Unknown) 1 dose PO QAM traMADol HCL 50 mg PO Q6H 3 Days #12 tab Acetaminophen [Tylenol] 650 mg PO Q6H PRN PRN Reason: Pain Discontinued Ibuprofen [Advil] 200 mg PO Q6HR PRN PRN Reason: Pain Cephalexin [Keflex] 500 mg PO Q8HR 3 Days #9 cap Naproxen Sodium [Aleve] 220 mg PO BID PRN PRN Reason: Pain Discharge Medication List Omeprazole [PriLOSEC] 40 mg PO AC-SUPPER 10/17/15 [History] Acetaminophen [Tylenol] 650 mg PO Q6H PRN 03/27/23 [History] Diclofenac Sodium [Voltaren] 75 mg PO BID PRN 03/27/23 [History] Levothyroxine Sodium 150 mcg PO QAM 03/27/23 [History] Losartan Potassium [Cozaar] 100 mg PO HS 03/27/23 [History] Rosuvastatin [Crestor] 10 mg PO HS 03/27/23 [History] amLODIPine BESYLATE [Norvasc] 5 mg PO HS 03/27/23 [History] Aspirin 325 mg PO QAM 10/08/23 [History] Co-Q10 (Dose Unknown) 1 dose PO QAM 10/08/23 [History] traMADol HCL 50 mg PO Q6H 3 Days #12 tab 10/15/23 [Rx] Amoxic-Pot Clav 875-125Mg [Augmentin 875-125] 1 tab PO BID 10 Days #20 tab 10/23/23 [Rx] Follow up Appointment(s)/Referral(s): Sim Pyle MD [Primary Care Provider] - 1-2 days [facility] [NON-STAFF] - As Needed Xavier Hubbard MD [STAFF PHYSICIAN] - 1 Week Discharge Disposition: HOME WITH HOME HEALTH SERVICES
[2023-10-23 16:08] VITALS: BP 145/81; PULSE 50; RESP 17
[2023-10-25] MEDS ORDERED: VANCOMYCIN TROUGH DUE 1 EACH MISC MISCELLANE ONE (19:00)
--- NOTE | 2023-10-27 13:30 | CDI ---
Documentation Clarification Form Date: 10/27/2023 01:19:36 PM From: Zaynab Parry Admit Date: 10/19/2023 04:12:00 AM Patient Name: Sachi Vargas Visit Number: [id number] Discharge Date: 10/23/2023 05:09:00 PM ATTENTION: The Clinical Documentation Specialists (CDI) and [facility] Coding Staff appreciate your assistance in clarifying documentation. Please respond to the clarification below the line at the bottom and electronically sign. The CDI & [facility] Coding staff will review the response and follow-up if needed. Please note: Queries are made part of the Legal Health Record. If you have any questions, please contact the author of this message via ITS. Dr. Sim Pyle Your patient has the documented diagnosis of hypertensive cardiovascular diseases and pulmonary vascular congestion, throughout the chart. CXR consider incipient CHF. Additional information regarding the additional diagnosis of CHF, type and acuity is requested. History/Risk Factors: Clinical Indicators: cardiomegaly VS/Pulse OX: 100.3 F, 79, 18, 161/93, 93% RA BNP: Not done Chest X Ray: Cardiomegaly, Consider incipient CHF Treatment: Lasix 40 mg IV In your professional opinion, can you please clarify if CHF can be considered an additional diagnosis, if so acuity and type. [ ] Acute Systolic Heart Failure (reduced EF) [ ] Chronic Systolic Heart Failure (reduced EF) [ ] Acute on Chronic Systolic Heart Failure (reduced EF) [ ] Acute Diastolic Heart Failure (preserved EF) [ ] Chronic Diastolic Heart Failure (preserved EF) [ X ] Acute on Chronic Diastolic Heart Failure (preserved EF) [ ] Acute Systolic & Diastolic Heart Failure [ ] Chronic Systolic & Diastolic Heart Failure [ ] Acute on Chronic Heart Failure Systolic & Diastolic Heart Failure [ ] Other, please specify [ ] Unable to determine MTDD
--- NOTE | 2023-10-29 10:13 | CDI ---
Documentation Clarification Form Date: 10/29/2023 09:49:04 AM From: Kristie Landers RN, CCDS Phone: [phone] Admit Date: 10/19/2023 04:12:00 AM Patient Name: Sachi Vargas Visit Number: [id number] Discharge Date: 10/23/2023 05:09:00 PM ATTENTION: The Clinical Documentation Specialists (CDI) and [facility] Coding Staff appreciate your assistance in clarifying documentation. Please respond to the clarification below the line at the bottom and electronically sign. The CDI & [facility] Coding staff will review the response and follow-up if needed. Please note: Queries are made part of the Legal Health Record. If you have any questions, please contact the author of this message via ITS. Dr. Sim Pyle Sepsis is documented by the ED physician and ID technical assistance consultant in several progress notes. Based on this information and the findings below, is there an additional diagnosis that is clinically appropriate for this patient? History/Risk Factors: GERD, HLD, HTN, [place], [place] with FILEMON. Recent bladder suspension in the prior week. Presents to the ED with right gluteal abscess and fever. S/P I&D in the ED. Clinical Indicators: 10/17-10/21 WBC: 16.5-14.5-11.3-12.02 10/17-10/21 Neutrophils: 14.6-10.9-8.3-8.03 10/19 Buttock cultures: anaerobic gram negative bacilli Vitals signs on admission: Temp 100.3-102.3-100.4 10/17 ED: "Gluteal abscess with sepsis." 10/19 ID Consult: "patient presented to hospital with sepsis, did have a fever and elevated white count. Source is right gluteal abscess likely from gram- positive skin candelario. Underlying gram-negative infection not excluded keeping in proximity to the GI tract." Treatment: Acetaminophen 1000mg po x1 on 10/17 ID Consult: see above Antibiotics: IV Cefepime 2gm Q12H 10/18-10/22; IV Rocephin 2gm x1 on 10/18; IV Vancomycin 2000mg x1 on 10/18; IV Vancomycin 2250mg Q24H 10/18-10/21 IV: 0.9 NS @75mL/hr 10/18-10/19 Is there an additional diagnosis that is clinically appropriate for this patient? [ X ] Gram-negative Sepsis, present on admission [ ] Sepsis, ruled out [ ] Other, please specify [ ] Unable to determine SIRS Criteria: 2 or more of the following may indicate SIRS -Core Temperature < 96.8F(36C) or > 101.3F (38.5C) -Heart Rate Tachycardia > 2 SD above normal for age or Bradycardia <10th percentile for age -Respiratory Rate > 2 SD above normal for age or mechanical ventilation -White Blood Cell Count Elevated or depressed for age or > 10% bands (not due to chemo) MTDD
--- NOTE | 2023-10-29 10:42 | CDI ---
Documentation Clarification Form Date: 10/29/2023 10:19:52 AM From: Kristie Landers RN, CCDS Phone: [phone] Admit Date: 10/19/2023 04:12:00 AM Patient Name: Sachi Vargas Visit Number: [id number] Discharge Date: 10/23/2023 05:09:00 PM ATTENTION: The Clinical Documentation Specialists (CDI) and [facility] Coding Staff appreciate your assistance in clarifying documentation. Please respond to the clarification below the line at the bottom and electronically sign. The CDI & [facility] Coding staff will review the response and follow-up if needed. Please note: Queries are made part of the Legal Health Record. If you have any questions, please contact the author of this message via ITS. Dr. Sim Pyle Your patient had mild cardiomegaly with pulmonary vascular congestion shown on CXR. Based on this information and the findings below, is there an additional diagnosis that is clinically appropriate for this patient? Patient history/risk factors: GERD, HLD, HTN, PA, CAD with stents, Morbid obesity with FILEMON. Recent bladder suspension in the prior week. Presents to the ED with right gluteal abscess and fever. S/P I&D in the ED. Clinical Indicators: H&P: "Lungs: positive for shortness of breath. Mild cardiomegaly with pulmonary vascular congestion, discontinue IV fluid resuscitation. Started the patient on IV Lasix 40 mg IV push every 24 hours." 10/18 CXR: Cardiomegaly. Mild prominence of central pulmonary vascular. 10/20 IM: "Continue 40 mg of IV Lasix for mild cardiomegaly." Treatment: discontinue IV fluids; IV Lasix 40mg daily 10/18-10/21 Is there an additional diagnosis that is clinically appropriate for this patient? [ X ] Acute Pulmonary Edema [ ] No additional diagnosis/Not clinically significant [ ] Unable to determine [ ] Other, please specify MTDD
== END 2023-10-23 17:09 | disposition home health service (06) | DRG 871 ==
LOC: EC 20:24 → 4SSUR 10-19 04:12
PROVIDERS: ADMIT Internal Medicine; ATTEND Internal Medicine
PROC: 0J9900Z Drainage of Buttock Subcutaneous Tissue and Fascia with Drainage Device, Open Approach (ICD-10-PCS; principal; 2023-10-19)
DX: A41.50 Gram-negative sepsis, unspecified (principal); J81.0 Acute pulmonary edema; L02.31 Cutaneous abscess of buttock; E66.2 Morbid (severe) obesity with alveolar hypoventilation; L03.317 Cellulitis of buttock; E03.9 Hypothyroidism, unspecified; E78.2 Mixed hyperlipidemia; I11.0 Hypertensive heart disease with heart failure; I25.10 Atherosclerotic heart disease of native coronary artery without angina pectoris; I25.2 Old myocardial infarction; R09.89 Other specified symptoms and signs involving the circulatory and respiratory systems; K21.00 Gastro-esophageal reflux disease with esophagitis, without bleeding; Z79.82 Long term (current) use of aspirin; Z79.899 Other long term (current) drug therapy; Z88.0 Allergy status to penicillin; Z95.5 Presence of coronary angioplasty implant and graft; Z11.52 Encounter for screening for COVID-19; L40.9 Psoriasis, unspecified; R73.03 Prediabetes; M19.90 Unspecified osteoarthritis, unspecified site; M47.816 Spondylosis without myelopathy or radiculopathy, lumbar region
CPT/HCPCS: 10060; 36415; 71045; 80053; 80202; 81001; 82565; 83605; 85025; 87040; 87070; 87075; 87205; 87636; 96361; 96365; 96366; 96367; 96372; 96375; 99285

== ENCOUNTER → 2024-11-24 | Outpatient (CLI) | payer MEDICARE ==
[2024-11-24 08:27] VITALS: BP 117/77; PULSE 48; RESP 16; TEMP 97.7
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
== END ==
LOC: PNWHC3 07:33
PROVIDERS: ATTEND Specialist
DX: S22.070A Wedge compression fracture of T9-T10 vertebra, initial encounter for closed fracture (principal); M47.816 Spondylosis without myelopathy or radiculopathy, lumbar region; M47.27 Other spondylosis with radiculopathy, lumbosacral region; Z88.0 Allergy status to penicillin; V89.2XXA Person injured in unspecified motor-vehicle accident, traffic, initial encounter
CPT/HCPCS: 99202

== ENCOUNTER → 2024-11-30 | Outpatient (CLI) | payer MEDICARE ==
--- NOTE | 2024-11-30 15:19 | US ---
EXAMINATION TYPE: US venous doppler duplex LE DATE OF EXAM: 11/30/2024 2:09 PM COMPARISON: NONE CLINICAL INDICATION: Female, 69 years old with history of R60.0 LOCALIZED [id number] LOCALIZED EDEMA; bilat edema, Pain TECHNIQUE: The lower extremity deep venous system is examined utilizing real time linear array sonog juan antonio with graded compression, color doppler sonography, and spectral doppler. SIDE PERFORMED: Bilateral FINDINGS: VESSELS IMAGED: Common Femoral Vein Deep Femoral Vein Greater Saphenous Vein * Femoral Vein Popliteal Vein Small Saphenous Vein * Proximal Calf Veins (* superficial vessels) Radiologist Physician notes: Exam limited by edema and large body habitus. Non-visualization of the calf veins and right SSV. Unable to visualize distal femoral veins to obtain compression. Right Leg: Negative for DVT, Color Doppler imaging shows patency of the vessels. Spectral waveforms are within normal limits. Left Leg: Negative for DVT, Color Doppler imaging shows patency of the vessels. Spectral waveforms a re within normal limits. IMPRESSION: Exam limitations as above. To the extent visualized, no DVT seen within the bilateral lower extremiti es. Unable to adequately assess the calf veins, lower femoral veins, and right SSV. [facility], , 11/30/2024 3:16 PM
== END | disposition home or self-care (01) ==
LOC: RADUSWWP 13:34
PROVIDERS: ATTEND Internal Medicine
DX: R60.0 Localized edema (principal)
CPT/HCPCS: 93970

== ENCOUNTER → 2024-12-06 | Outpatient (CLI) | payer MEDICARE ==
--- NOTE | 2024-12-06 15:05 | XR ---
EXAMINATION TYPE: XR chest 2V DATE OF EXAM: 12/06/2024 3:01 PM COMPARISON: Chest radiographs from CLINICAL INDICATION: Female, 69 years old with history of R04.2 HEMOPTYSIS; [facility] TECHNIQUE: XR chest 2V Frontal and lateral views of the chest. FINDINGS: Lungs/Pleura: Low lung volumes are present. There is no evidence of pleural effusion, focal consolida tion, or pneumothorax. Pulmonary vascularity: Unremarkable. Heart/mediastinum: Cardiomediastinal silhouette is unremarkable. Musculoskeletal: No acute osseous pathology. There is lower spine fixation hardware is present. Other findings: None IMPRESSION: No acute cardiopulmonary disease/process. [facility], , 12/06/2024 3:03 PM
== END | disposition home or self-care (01) ==
LOC: RADXRMAIN 14:43
PROVIDERS: ATTEND Internal Medicine
DX: R04.2 Hemoptysis (principal)
CPT/HCPCS: 71046

== ENCOUNTER → 2024-12-21 | Outpatient (CLI) | payer MEDICARE ==
--- NOTE | 2024-12-21 14:38 | US ---
EXAMINATION TYPE: US kidneys/renal and bladder DATE OF EXAM: 12/21/2024 COMPARISON: NONE CLINICAL INDICATION: Female, 69 years old with history of N18.31 CKD STAGE 3; CKD TECHNIQUE: Grayscale imaging of the bilateral kidneys and urinary bladder: FINDINGS: EXAM MEASUREMENTS: Right Kidney: 9.0 x 4.6 x 5.1 cm Left Kidney: 7.3 x 4.2 x 5.1 cm Exam extremely limited by overlying bowel gas and patient body habitus. Right Kidney: Isoechoic area measured on the right kidney measuring 2.4 x 2.4 x 2.3 cm Left Kidney: No hydronephrosis or masses seen, very obscured by bowel gas. Appears small in size Bladder: wnl Bilateral Jets seen: Yes There is no evidence for hydronephrosis at this point in time. No nephrolithiasis is seen. The urin kelli bladder is anechoic. IMPRESSION: 1. No evidence for acute process. 2. Right renal cyst. [facility], , 12/21/2024 2:36 PM
[2024-12-21 19:24] LABS: ALT 17 U/L (8-44); AST 21 U/L (13-35); Cholesterol 150.00 mg/dL (0.00-200.00); HDL Cholesterol 47.20 mg/dL (40.00-60.00); LDL Cholesterol,Calculated 76.8 mg/dL (0.0-131.0); Triglycerides 130.00 mg/dL (0.00-149.00); VLDL Calculation 26.00 mg/dL (5.00-40.00)
== END | disposition home or self-care (01) ==
LOC: RADUSWWP 13:15
PROVIDERS: ATTEND Internal Medicine
DX: N18.31 Chronic kidney disease, stage 3a (principal); E78.2 Mixed hyperlipidemia; N28.1 Cyst of kidney, acquired
CPT/HCPCS: 76770; 80061; 84450; 84460